=== PATIENT | male | born 1950 | race Caucasian/White ===

== ENCOUNTER → 2018-05-11 09:08 | Outpatient (CLI) | payer MEDICARE, OTHER, SELFPAY | PROVIDERS: PCP Internal Medicine Adolescent Medicine; Visit Provider Internal Medicine Adolescent Medicine | DX: G47.33 Obstructive sleep apnea (adult) (pediatric) (principal); R06.83 Snoring; I10 Essential (primary) hypertension | CPT/HCPCS: G0399 ==

== ENCOUNTER → 2018-10-06 15:27 | Outpatient (CLI) | payer MEDICARE, OTHER, SELFPAY ==
--- NOTE | 2018-10-06 16:03 | XR_ITS ---
XR chest 2V HISTORY: ITS.REASON: BRONCHOPNEUMONIA ORDERING PHYSICIAN: Luisa Sandoval PATIENT AGE: 68 years COMPARISON: 01/14/2017. FINDINGS: Normal heart size. Chronic changes are present in both lower lobes with fibrotic changes. There is a pacemaker wire present along the presternal region within the soft tissues. No lobar consolidation or collapse. No acute bony anomalies. IMPRESSION: 1. No change with no acute findings. 2. Bilateral lower lobe fibrotic change. 3. External defibrillator device present
[2018-10-06 16:07] LABS: Basophils % 0.3 % (0.1-2.0); Eosinophils # 0.2 K/mm3 (0.0-0.4); Eosinophils % 2.6 % (0.1-12.0); Hematocrit 47.7 % (42.0-52.0); Hemoglobin 14.8 g/dL (14.1-18.0); Lymphocytes # 0.9 K/mm3 (0.7-4.5); Lymphocytes % 10.7 % (10-50); Mean Corpuscular HGB Conc 31.1 g/dL (31.8-35.4); Mean Corpuscular Hemoglobin 29.6 pg (27.0-31.2); Mean Corpuscular Volume 95.2 fl (80-94); Mean Platelet Volume 7.7 fl (7.4-10.4); Monocytes # 0.4 K/mm3 (0.1-1.0); Monocytes % 4.9 % (1.7-9.3); Neutrophils # 6.7 K/mm3 (1.8-7.8); Neutrophils % 81.5 % (37.0-80.0); Platelet Count 171 K/mm3 (142-424); Red Blood Count 5.02 M/mm3 (4.60-6.20); Red Cell Distribution Width 14.2 % (11.5-17.5); White Blood Count 8.2 K/mm3 (4.8-10.8)
[2018-10-06 17:05] LABS: Alanine Aminotransferase 42 U/L (12-78); Albumin Level 3.8 gm/dL (3.4-5.0); Albumin/Globulin Ratio 1.2 (1.1-1.8); Alkaline Phosphatase 80 U/L (46-116); Anion Gap 12.7 mEq/L (5-15); Aspartate Amino Transferase 14 U/L (15-37); Bilirubin,Total 0.4 mg/dL (0.2-1.0); Blood Urea Nitrogen 16 mg/dL (7-18); Calcium 8.4 mg/dL (8.5-10.1); Carbon Dioxide 30 mmol/L (21.0-32.0); Chloride 103 mmol/L (98-107); Creatinine,Serum 1.31 mg/dL (0.70-1.30); Estimated Glomerular Filt Rate 55 ml/min (>60); GFR (African American) 66 ML/MIN (>60); Globulin 3.1 gm/dl (1.3-3.2); Glucose 102 mg/dL (74-106); Potassium 3.7 mmoL/L (3.5-5.1); Prostate Specific Ag Screen 0.4 ng/mL (0.0-4.0); Sodium 142 mmol/L (136-145); Total Protein,Serum 6.9 gm/dL (6.4-8.2)
== END ==
PROVIDERS: Visit Provider Nurse Practitioner Family
DX: J18.0 Bronchopneumonia, unspecified organism (principal); Z12.5 Encounter for screening for malignant neoplasm of prostate
CPT/HCPCS: 36415; 71046; 80053; 85025; 87040; G0103

== ENCOUNTER → 2023-05-30 06:34 | Outpatient (CLI) | payer MEDICARE, SELFPAY ==
--- NOTE | 2023-05-30 06:41 | CT_ITS ---
FINAL REPORT CLINICAL HISTORY: MEMORY IMPAIRMENT, FORGETFULLNESS COMPARISON: None FINDINGS: Axial images of the head were obtained without contrast. Coronal and sagittal reformatted images were also obtained. This study was performed with techniques to keep radiation doses as low as reasonably achievable (ALARA). Individualized dose reduction techniques using automated exposure control or adjustment of mA and/or kV according to the patient's size were employed. There is generalized age appropriate atrophy. There is no evidence of intracranial hemorrhage or mass. The ventricular size is within normal limits. There is no evidence of shift of the midline structures. No skull abnormality is seen on the bone window images. Mucosal thickening is noted in multiple paranasal sinuses. IMPRESSION: No acute intracranial abnormality. Reviewed, Interpreted and Dictated by Tomasz Andrea III, MD Transcribed by Halley Sosa Authenticated and [facility]
== END ==
LOC: RAD 06:36
PROVIDERS: PCP Nurse Practitioner Family; Visit Provider Nurse Practitioner Family
DX: R41.3 Other amnesia (principal)
CPT/HCPCS: 70450

== ENCOUNTER 2025-02-26 13:52 | Outpatient (CLI) | payer MEDICARE, SELFPAY ==
--- NOTE | 2025-02-26 13:57 | CT_ITS ---
FINAL REPORT TECHNIQUE: Axial images of the lumbar spine was performed with and without contrast. Sagittal and coronal reformatted images were obtained and reviewed. This study was performed with techniques to keep radiation doses as low as reasonably achievable, (ALARA). Individualized dose reduction techniques using automated exposure control or adjustment of mA and/or kV according to the patient's size were employed. CLINICAL HISTORY: RADICULOPATHY LUMBAR REGION FINDINGS: No acute lumbar fracture is identified. The vertebral body heights are well-preserved. There is a very minimal retrolisthesis of L2 on 3, likely degenerative. Mild levoscoliosis is identified. There are groundglass and airspace opacities in the right lower lobe which are incompletely imaged, pneumonia is not excluded. Otherwise, no acute paraspinal abnormality is identified. L1-2: An annular disc bulge is present with degenerative endplate changes and facet osteoarthropathy. Mild central stenosis and mild bilateral neuroforaminal narrowing. L2-3: An annular disc bulge is present with degenerative endplate changes and facet osteoarthropathy. Moderate central stenosis. Moderate right and severe left neuroforaminal narrowing. L3-4: An annular disc bulge is identified with mild central stenosis and mild to moderate bilateral neuroforaminal narrowing. L4-5: An annular disc bulge is identified with moderate right neuroforaminal narrowing. L5-S1: An annular disc bulge is identified. There is no canal stenosis or neuroforaminal narrowing. IMPRESSION: Multilevel degenerative disc disease, most pronounced at L2-3. Possible pneumonia. Correlate with clinical symptoms. Reviewed, Interpreted and Dictated by Rosa Isela Smith MD Transcribed by Ellen Carrizales Authenticated and [facility]
[2025-02-26 14:21] LABS: Blood Urea Nitrogen 17 mg/dl (9-20); Estimated Glomerular Filt Rate 59 ml/min (>60); GFR (African American) 72 ML/MIN (>60)
[2025-02-26] MEDS: SODIUM CHLORIDE 0.9% 10ML SYR (RAD ONLY) 10 ML IV (15:16)
[2025-02-26] MEDS: IOPAMIDOL-370 (76%);100ML BOTTLE 100 ML IV (15:17)
== END 2025-02-26 23:59 | disposition home or self-care (01) ==
LOC: RAD 13:53
PROVIDERS: PCP Nurse Practitioner Family; Visit Provider Nurse Practitioner Family
DX: M54.16 Radiculopathy, lumbar region (principal)
CPT/HCPCS: 36415; 72133; 82565; 84520; Q9967

== ENCOUNTER 2025-04-09 10:00 | Outpatient (RCR) | payer MEDICARE, SELFPAY | END 2025-04-16 07:26 | disposition home or self-care (01) | LOC: PT.CARL 10:00 | PROVIDERS: PCP Nurse Practitioner Family; Visit Provider Anesthesiology Pain Medicine | DX: M54.16 Radiculopathy, lumbar region (principal) | CPT/HCPCS: 97110; 97140; 97163 ==

== ENCOUNTER 2025-05-06 14:25 | Outpatient (CLI) | payer MEDICARE, SELFPAY ==
--- OUTSIDE RECORDS SUMMARY | 2025-04-03 15:00 | XMS_ITS | Encounter Summary ---
Author Organization Healthcare Address [address] [place] [address] Care Team Providers Care Lining Caser Name Role Phone Cody Sandovaly Ayla DUNN Primary Care Provider [phone] Reason for Referral * Consultation (Routine) - Authorized Specialty Diagnoses / Procedures Referred By Contac t Referred To Contact Diagnoses Coronary artery disease involving tribal coronary artery of tribal heart without angina pectoris Uday Daniel MD [address] [place] [id number] Phone: tel: fax: Referral ID Status Reason Start Date Expiration Date V isits Requested Visits Authorized [id number] Authorized 04/03/2025 10/03/2026 1 1 Encounter Details Date Type Department Care Team (Late st Contact Info) Description 04/03/2025 3:00 PM EDT Office Visit [facility] [place] [address] [facility] [address] [facility], [address] [place] [address] Anton Varma MD [address] [place] [address] Chronic systolic heart failure (CMS/HCC) (Primary Dx); Paroxysmal atrial fibrillation (CMS/HCC); Coronary artery disease involving tribal coronary artery of tribal heart without angina pectoris; Orthostatic hypotension Social History Tobacco Use Types Packs/Day Years Used Date Smoking Tobacco: Former Smokeless Tobacco: Never Tobacco Cessation:Counseling Given: Not Answered Alcohol Use Standard Drinks/Week Comments Yes 0 (1 standard drink = 0.6 oz pur e alcohol) occ. PHQ-2 Answer Date Recorded Patient Health Questionnaire-2 Score 3 04/03/2025 PHQ-9 Answer Date Recorded Patient Health Questionnaire-9 Score 10 04/03/2025 PHQ-2A Answer Date Recorded Patient Health Questionnaire-2 Score 0 09/21/2023 Sex and Gender Information Value Date Recorded Sex Assigned at Not on file Legal Sex Male 6:15 PM EDT Gender Identity Not on file Sexual Orientation Not on file documented as of this encounter Last Filed Vital Signs Vital Sign Reading Time Taken Comments Blood Pressure 119/65 04/03/2025 2:55 PM EDT Pulse 59 04/03/2025 2:55 PM EDT Temperature - - Respiratory Rate - - Oxygen Saturation 94% 04/03/2025 2:55 PM EDT Inhaled Oxygen Concentration - - Weight 110 kg (243 lb 6.2 oz) 04/03/2025 2:55 PM EDT Height 167.6 cm (5' 6 ) 04/03/2025 2:55 PM EDT Body Mass Index 39.28 04/03/2025 2:55 PM EDT documented in this encounter Functional Status * Over the past 2 weeks, how often have you been bothered by any of the following problems? Question Answer Date of Assessment Author Little interest or pleasure in doing things More than half the days 04/03/2025 3:00 PM Nicolle Gardner Feeling down, depressed, or hopeless Several days 04/03/2025 3:00 PM EDT Lexy Cristina Patient Health Questionnaire-2 Score 3 04/03/2025 3:00 PM NISSAT Nicolle Cristina * Question Answer Date of Assessment Author Trouble falling or staying asleep, or sleeping too much More than half the days 04/03/2025 3:00 PM Nicolle Gardner Feeling tired or having little energy More than half the days 04/03/2025 3:00 PM Nicolle Gardner Poor appetite or overeating Not at all 04/03/2025 3:00 PM Nicolle Gardner Feeling bad about yourself - or that you are a failure or have let yourself or your family down Not at all 04/03/2025 3:00 PM Nicolle Gardner Trouble concentrating on things, such as reading the newspaper or watching television Nearly every day 04/03/2025 3:00 PM Nicolle Gardner Moving or speaking so slowly that other people could have noticed? Or the opposite - being so fidgety or restless that you have been moving around a lot more than usual. Not at all 04/03/2025 3:00 PM Nicolle Gardner Thoughts that you would be better off or hurting yourself in some way Not at all 04/03/2025 3:00 PM Nicolle Gardner Patient Health Questionnaire-9 Score 10 04/03/2025 3:00 PM Nicolle Gardner * If you checked off any problems on this questionnaire so far, Question Answer Date of Assessment Author How difficult have these problems made it for you to do your work, take care of things at home, or get along with other people? Somewhat difficult 04/03/2025 3:00 PM Nicolle Gardner * How difficult have these problems made it for you to do your work, take care of things at home, or get along with other people? Answer Date of Assessment Author Somewhat difficult 04/03/2025 3:00 PM Nicolle Gardner documented as of this encounter Miscellaneous Notes * Progress Notes - Anton Varma MD - 04/03/2025 3:00 PM EDT Images from the original note were not included. Cardiology Clinic Return Visit History of present illness: Brown Yañez is a 74 y.o. male that presented for follow up. Pertinent history CAD s/p PCI (prox. LAD 2003) Ischemic CM with HFrEF (EF 35-40%, February 2021, s/p [employer] Subcutaneous ICD for primary prevention) pAF (Xarelto) VASHTI (CPAP) Pertinent medications Furosemide 20 daily Losartan 50 Metop succinate 200 Nitroglycerin sublingual PRN (last was months ago, 1-2 in past year) Rosuvastatin 40 Xarelto 20 PPI At last cardiology clinic visit: April 2024 seen by myself. At that visit we had stopped coleman, and he had improvement in orthostasis. He had dyspnea while walking up inclines, no chest pains or orthopnea. Interval history Heart seems well Gets lightheaded fairly easy Worse when standing up from low postion Does not occur with exertion or at rest, mainly positional Chest pressure occurs randomly Every few days Worse with exertion Improves in about 5 minutes Not very stable on his feet. Hurts in back and hip. He wants to ensure that steroid injections and that GLP1RA are ok for his heart. Objective Physical exam Blood pressure 119/65, pulse 59, height 1.676 m (5' 6 ), weight 110 kg (243 lb 6.2 oz), SpO2 94%. General: Awake, alert, NAD. Neck: No appreciable JVD. Cardiac: Regular rate, regular rhythm, no appreciable murmur. Pulmonary: No increased work of breathing. Extremity: Warm, no significant LE edema. Lab Results Component Value Date LDLCALC 58 03/07/2024 TRIG 200 (H) 03/07/2024 HDL 48 03/07/2024 Lab Results Component Value Date BNP 67 08/31/2021 Lab Results Component Value Date CREATININE 1.19 03/07/2024 K 4.2 03/07/2024 MG 2.3 10/10/2018 Assessment Coronary artery disease (PCI prox LAD) Hyperlipidemia Stable Antiplatelet: no need given anticoagulation as below Lipids: Crestor 40, request lipid panel from his PCP Antianginal: PRN sublingual nitroglycerin HFrEF (31% ICM via TTE 11/2022) Primary prevention [employer] Subcutaneous ICD) Orthostatic hypotension Stable and compensated Orthostic symptoms remain improved after discontinuing spironolactone I want to trial a reduction in metop succinate and reduction in daily diuretic in attempt to targethis orthostasis. GDMT BB: Metop succinate reduce from 200 to 150 RAAS: Losartan 50 MRA: Discontinued spironolactone (orthostasis) SGLT2i: consider in future Diuretic: Lasix 20 reduce from daily to PRN Paroxysmal afib Stable AC: Xarelto Rate: Beta cameron as above Hypertension Appears controlled Regimen as above Recommendations Request lipids from PCP Reduce metoprolol succinate to 150 mg daily Change daily lasix to PRN for weight gain 3-5 pounds, dyspnea, leg swelling Refill xarelto. Xarelto is ok to be held for a few days, if needed, for procedure. I can give specific instructions, if requested by a proceduralist. Return to Clinic: 3 months I spent 38 minutes performing the following components of the encounter (on the day of the encounter): reviewing History, examining the patient, reviewing imaging and/or labs, Independently interpreting echocardiogram, ECG and/or other imaging results, ordering tests or procedures, ordering medications, counseling the patient and family/caregiver, communicating with other health post anesthesia care unit nurse, and entering clinical information in the EHR. Anton Varma MD PGY-5 Fellow, Cardiovascular Diseases Cosigned by Uday Daniel MD at 04/08/2025 7:53 AM EDT Associated attestation - Uday Daniel MD - 04/08/2025 7:53 AM EDT I evaluated the patient with the resident/fellow. I discussed the case with the resident/fellow andagree with the findings and plan as documented. documented in this encounter Plan of Treatment Upcoming Encounters Date Type Department Care Team (Late st Contact Info) Description 08/21/2025 10:00 AM EDT Office Visit [facility] [place] [address] [facility] [facility], [address] [place] [address] Anton Varma MD [address] [place] [id number] Scheduled Referrals Name Type Priority Associated Diagnoses Order Schedule Follow Up Cardiology Outpatient Referral Routine Coronary artery disease involving tribal coronary artery of tribal heart without angina pectoris Expected: 07/04/2025, Expires: 10/03/2026 documented as of this encounter Visit Diagnoses Diagnosis Chronic systolic heart failure (CMS/HCC)- Primary Chronic systolic heart failure Paroxysmal atrial fibrillation (CMS/HCC) Atrial fibrillation Coronary artery disease involving tribal coronary artery of tribal heart without angina pectoris Orthostatic hypotension documented in this encounter Additional Health Concerns Assessment Noted Time PHQ-9 Depression Total Score: 025 3:00 PM EDT A fall risk assessment has been complete d for the patient 04/03/2025 3:00 PM EDT A Body Mass Index follow-up plan has been documented for the patient 04/03/2025 4:23 PM EDT documented as of this encounter Care Teams Lining Caser Relationship Specialty Start Date End Date Luisa Sandoval APRN [address] [place] [address] PCP - General 03/06/21 documented as of this encounter
--- OUTSIDE RECORDS SUMMARY | 2025-04-19 09:10 | XMS_ITS | Encounter Summary ---
Author Organization Healthcare Address [address] [place] [address] Care Team Providers Care Tipple Repairer Name Role Phone Lori Luisa Ayla DUNN Primary Care Provider [phone] Encounter Details Date Type Department Care Team (Latest Contact Info) Description 04/19/2025 9:10 AM EDT - 04/19/2025 11:59 PM EDT Hospital Encounter Cardiac Imaging [address] [place] [address] ICD (implantable cardioverter-defibr illator) in place Discharge Disposition: Home or Self Care Social History Tobacco Use Types Packs/Day Years Used Date Smoking Tobacco: Former Smokeless Tobacco: Never Alcohol Use Standard Drinks/Week Comments Yes 0 [...] on file documented as of this encounter Medications at Time of Discharge BUDESONIDE-FORMOT ROSSY FUMARATE IN Inhale 1 puff 2 (two) times a day. PRN 12/11/2019 buPROPion XL (Wellbutrin XL) 150 MG 24 hr tablet Take 1 tablet (150 mg) by mouth 1 (one) time each day in the morning. 03/30/2024 citalopram (CeleXA) 40 MG tablet Take 1 tablet (40 mg) by mouth every night. 04/12/2016 furosemide (Lasix) 20 MG tablet Take 1 tablet (20 mg) by mouth 1 (one) time each day. 04/20/2021 metoprolol succinate XL (Toprol XL) 100 MG 24 hr tabletIndications :Coronary artery disease involving viejas coronary artery of viejas heart without angina pectoris Take 1.5 tablets by mouth daily. Do not crush or chew. 135 tablet 3 04/03/2025 montelukast (Singulair) 10 MG tablet Take 1 tablet (10 mg) by mouth every night. nitroglycerin (Nitrostat) 0.[address] 1 tablet (0.4 mg) under the tongue every 5 (five) minutes if needed for chest pain. 02/28/2019 omeprazole (PriLOSEC) [address] capsule Take 1 capsule (20 mg) by mouth 1 (one) time each day. Do not crush or chew. rivaroxaban (Xarelto) 20 MG tabletIndications :Coronary artery disease involving viejas coronary artery of viejas heart without angina pectoris Take 1 tablet by mouth 1 time each day with dinner. Take with food. 30 tablet 2 04/03/2025 rosuvastatin (Crestor) 40 MG tablet Take 1 tablet (40 mg) by mouth every night. 08/31/2021 documented as of this encounter Plan of Treatment Upcoming Encounters Date Type Department Care Team (Late st Contact Info) Description 08/21/2025 10:00 AM EDT Office Visit [facility] [place] [address] [facility] [place] [address] Anton Varma MD [address] [place] [address] documented as of this encounter Procedures Procedure Name Priority Date/Time Associated Diagnosis Comments CARDIAC DEVICE CHECK - REMOTE - ICD Routine 04/19/2025 9:37 AM EDT ICD (implantable cardioverter-defibr illator) in place documented in this encounter Results * CARDIAC DEVICE CHECK - REMOTE - ICD (04/19/2025 9:37 AM EDT) Anatomical Region Laterality Modality Other Narrative 04/19/2025 10:37 AM EDT Remaining device battery appropriate for time in service. Electrode impedance ok per report. Presenting EGM records cardiac cycle events appropriately. No new events. No change in smart charge time. Sensing configuration on this report is primary with 1x gain. Presenting: regular ventricular rhythm Kristin Pena Elan DUNN CV IMPLANTABLE CARDIAC DEV ICE PROCEDURES Final Result documented in this encounter Visit Diagnoses Diagnosis ICD (implantable cardioverter-defibrillator) in place documented in this encounter Additional Health Concerns Assessment Noted Time PHQ-9 Depression Total Score: 10 025 3:00 PM EDT A fall risk assessment has been complete d for the patient 04/03/2025 3:00 PM EDT A Body Mass Index follow-up plan has been documented for the patient 04/03/2025 4:23 PM EDT documented as of this encounter Care Teams Tipple Repairer Relationship Specialty Start Date End Date Luisa Sandoval APRN [address] [place] [address] PCP - General 03/06/21 documented as of this encounter
--- NOTE | 2025-05-06 14:28 | CT_ITS ---
FINAL REPORT TECHNIQUE: Axial images were performed through the brain.This study was performed with techniques to keep radiation doses as low as reasonably achievable, (ALARA). Individualized dose reduction techniques using automated exposure control or adjustment of mA and/or kV according to the patient''s size were employed. CLINICAL HISTORY: DIZZINESS/GIDDINESS COMPARISON: 05/30/2023 FINDINGS: There is mild atrophy. The ventricles are normal in size for the degree of atrophy. There is no extra-axial fluid or midline shift. There is no evidence of acute hemorrhage or mass. IMPRESSION: Atrophy. No acute intracranial process. Reviewed, Interpreted and Dictated by Telly Aguilar MD Transcribed by Karissa Connelly Authenticated and [facility]
--- OUTSIDE RECORDS SUMMARY | 2025-05-06 14:28 | XMS_ITS | Continuity of Care Document ---
Author Organization [place] - [email or web address] [facility] Address [address] [place] [address] Assessment No assessment recorded. Plan of Treatment Reminders Order Date Submit Date Provider Last Modified By Organization Details Last Modified Time Details Appointments None recorded. Lab None recorded. Referral neurologist referral - he is already established [address] [place] [address] Neurology, [address] [place] [address], [phone], 09:42:00 Procedures None recorded. Surgeries None recorded. Imaging US, duplex, carotid artery - same day as head CT please [address] [place] [address] (Scheduling), [address], [place], [address], 5 09:20:06 CT, head, w/o contrast - same day as US please [address] [place] [address] (Scheduling), [address], [place], [address], 5 09:20:31 Medication Orders None recorded. Patient TargetsNo targets recorded. Patient InstructionsNo instructions recorded. Reason for Referral Neurologist Referral for Gutierrez jacobo he is already established Referring Physician: Luisa Sandoval, Family Medicine, Encounter Date: 04/24/2025 Problems Name Problem SNOMED Code Status Onset Date Resolution Date Notes Provider Name and Address Organization Details Recorded Time Spinal stenosis of lumbosac ral region 608238603 Active 2024 Luisa Sandoval APRN [address] [place] [address], [address] , [employer] 11:30:52 Allergy to contrast media 652287943 Active 2024 Luisa Sandoval APRN [address] [place] [address], [address] , [employer] 10:05:37 Fatigue 67864774 Active 2024 Luisa Sandoval APRN [address] [place] [address], [address] , [employer] 08:35:22 Obstruct lavern sleep apnea syndrome 69696441 Active 2024 Luisa Sandoval APRN [address] [place] [address], [address] [place] [address] , [employer] 08:41:53 Intermit tent vertigo 200029246 Active 2024 Luisa Sandoval APRN [address] [place] [address], [address] , [employer] 14:59:30 Impacted cerumen of bilatera l ears 76233338454 53247 Active 2024 Luisa Sandoval APRN [address] [place] [address], [address] [place] [address] , [employer] 5 15:00:34 Candidal intertri go 036568849 Active 2024 Luisa Sandoval APRN [address] [place] [address], [address] , [employer] 5 15:02:32 Dizzines s 558555243 Active 2024 Luisa Sandoval APRN [address] [place] [address], [address] , [employer] 5 11:39:56 Blurring of visual image 160095783 Active 2024 Luisa Sandoval, BIOLOGICAL SCIENTIST [address] [facility], [place], [address] , [employer] 5 11:59:00 Pertussi s 60833599 Completed 201806/14/2019 Not Available [facility] 2 21:19:56 Mild recurren t major depressi on 90937874 Active 2020 Problem Code: F33.0; Problem Code Type: ICD-10; Not Available [facility] 2 21:19:56 Hyperten sive disorder 38650552 Active 2018 Problem Code: I10; Problem Code Type: ICD-10; Not Available [facility] 2 21:19:56 Atherosc lerosis of coronary artery without angina pectoris 96647733249 4103 Active 2019 Not Available [facility] 2 21:19:56 Chronic systolic heart failure 421265551 Active 2021 Not Available [facility] 2 21:19:56 Acute pansinus itis 6305778 Completed 201807/14/2022 Problem Code: J01.40; Problem Code Type: ICD-10; STEPHAN LEE null, [employer] 2 12:15:57 Acute sinusiti s 71489062 Completed 201907/14/2022 Problem Code: J01.90; Problem Code Type: ICD-10; STEPHAN LEE null, [employer] 2 12:16:18 Acute sinusiti s 23732515 Completed 202003/22/2022 Problem Code: J01.90; Problem Code Type: ICD-10; STEPHAN LEE null, [employer] 2 12:16:18 Bronchop neumonia 272182509 Completed 201712/05/2018 Problem Code: J18.0; Problem Code Type: ICD-10; Not Available [facility] 2 21:19:57 Chronic obstruct lavern pulmonar y disease with acute lower respirat ory infectio n 878085597 Completed 201806/14/2019 Problem Code: J44.0; Problem Code Type: ICD-10; Not Available [facility] 2 21:19:57 Chronic obstruct lavern pulmonar y disease with acute lower respirat ory infectio n 804433906 Completed 201706/14/2019 Problem Code: J44.0; Problem Code Type: ICD-10; Not Available [facility] 21:19:57 Acute bronchit is co-occur rent with bronchie ctasis 062391255 Completed 201907/14/2022 Problem Code: J47.0; Problem Code Type: ICD-10; STEPHAN merida, [employer] 12:15:46 Chronic obstruct lavern pulmonar y disease 66801584 Active 2017 Problem Code: J44.9; Problem Code Type: ICD-10; Not Available [facility] 21:19:57 Pleural effusion 67290740 Completed 201904/03/2020 Not Available [facility] 21:19:57 Gastroes ophageal reflux disease without esophagi tis 257006446 Active 2018 Not Available [facility] 21:19:57 Umbilica l hernia 363885688 Active 2021 Problem Code: K42.9; Problem Code Type: ICD-10; Not Available [facility] 21:19:57 Melena 3271436 Completed 201806/14/2019 Problem Code: K92.1; Problem Code Type: ICD-10; Not Available [facility] 21:19:58 Pain in right hand 21344318791 9109 Completed 201807/14/2022 Problem Code: M79.641; Problem Code Type: ICD-10; STEPHAN merida, [employer] 12:17:04 Pain of left lower leg 06756284539 9101 Completed 202007/14/2022 Problem Code: M79.662; Problem Code Type: ICD-10; STEPHAN LEE null, [employer] 12:16:57 Pain in left foot 19781606349 9107 Completed 202007/14/2022 Problem Code: M79.672; Problem Code Type: ICD-10; STEPHAN LEE null, [employer] 2 12:17:06 Pain in toe 080398251 Completed 202007/14/2022 STEPHAN LEE null, [employer] 12:16:54 Dyspnea 678151430 Completed 201907/14/2022 Problem Code: R06.00; Problem Code Type: ICD-10; STEPHAN SANCHESDS null, [employer] 12:16:26 Nocturia 624761377 Completed 201907/14/2022 Problem Code: R35.1; Problem Code Type: ICD-10; STEPHAN LEE null, [employer] 12:16:39 Finding of general energy 631774246 Completed 201904/03/2020 Problem Code: R53.83; Problem Code Type: ICD-10; Not Available [facility] 21:19:59 Hypergly cemia 81679421 Completed 202003/22/2022 Problem Code: R73.9; Problem Code Type: ICD-10; Not Available [facility] 21:19:59 Abrasion of skin of forearm 696870583 Completed 201807/14/2022 STEPHAN LEE null, [employer] 12:15:40 General examinat ion of patient Completed 201912/23/2020 Not Available [facility] 21:19:59 Acute pansinus itis 1952860 Completed 201707/05/2018 Problem Code: J01.40; Problem Code Type: ICD-10; STEPHAN merida [employer] 2 12:15:57 Influenz a vaccine needed 74252213152 06 Completed 201908/25/2020 Problem Code: Z23; Problem Code Type: ICD-10; Not Available [facility] 2 21:20:00 Screenin g for malignan t neoplasm of prostate Completed 201712/05/2018 Problem Code: Z12.5; Problem Code Type: ICD-10; Not Available [facility] 2 21:20:00 Body mass index 30+ - obesity 388152234 Active 2019 Problem Code: Z68.37; Problem Code Type: ICD-10; Not Available [facility] 2 21:20:01 Body mass index 30+ - obesity 036462204 Completed 201708/25/2020 Problem Code: Z68.35; Problem Code Type: ICD-10; Not Available [facility] 2 21:20:01 Acute sinusiti s 16622989 Completed 201707/05/2018 Problem Code: 461; Problem Code Type: ICD-9; STEPHAN merida, [employer] 2 12:16:18 Screenin g for cancer Completed 201712/05/2018 Not Available [facility] 2 21:20:02 Problem Notes None recorded. Procedures Surgical History Date Name Laterality Status Provider Name and Address Organization Details Recorded Time 5 Cerumen Removal completed Luisa Sandoval APRN [address] [place] [address], [address], [employer] 04/14/2025 19:47:00 placement of stent in coronary artery completed [employer] 07/14/2022 12:18:41 Pacemaker completed [employer] 07/14/2022 12:18:50 Imaging Results None recorded. Procedure Notes None recorded. Medical Equipment None Reported. Allergies Allergen ID Allergen Name Allergen Category Reaction Reaction Severity Criticality Documentation Date Start Date Code Code System Note Provider Name and Address Organization Details Recorded Time 85246 Lipitor medicatio n Not available Not available Not available 06/29/2022 14951 5 RxNorm Not Available [employer] 22:54:53 48415 Iodinated contrast media (substanc e) medicatio n hives Not available Not available 03/04/20252024 41623 2003 SNOMED Luisa Sandoval, SHAUN [address] [place], [address], [facility] [employer] 10:06:44 Medications Name Sig Start Date Stop Date Status Note LastModified by Organization Details LastModified Time losartan 50 mg tablet TAKE 1 TABLET EVERY DAY 2024 active Not Available Not Available Not Avai lable cyclobenzap rine 10 mg tablet Take 1 tablet as needed by oral route at bedtime. 07/16 completed Not Available Not Available Not Available methocarbam ol 500 mg tablet TAKE ONE TABLET BY MOUTH EVERY DAY NEEDED at bedtime for muscle pain 02/12 completed Not Available Not Available Not Available promethazin e-DM 6.25 mg-15 mg/5 mL oral syrup take 5 millilite rs by oral route every 4 hours as needed, not to exceed 30 mL in 24 hours 12/21 completed Not Available Not Available Not Available carvedilol 25 mg tablet Take 1 tablet(s) by mouth bid 10/20 completed Not Available Not Available Not Available Depo-Medrol 40 mg/mL suspension for injection Take 80 mg by injection route. 03/14 completed Not Available Not Available Not Available citalopram 40 mg tablet TAKE 1 TABLET EVERY DAY active Not Available Not Available No t Available azithromyci n 250 mg tablet take 2 tablets (500 mg) by oral route once daily for 1 day then 1 tablet (250 mg) by oral route once daily for 4 days 11/18 completed Not Available Not Available Not Available ofloxacin 0.3 % eye drops INSTILL ONE DROP INTO THE LEFT EYE 4 TIMES DAILY DIRECTED 07/16 completed Not Available Not Available Not Available fluconazole 150 mg tablet TAKE ONE TABLET BY MOUTH every 72 hours NEEDED, FOR RASH 04/24 completed Not Available Not Available Not Available Nystop 100,000 unit/gram topical powder APPLY TO THE AFFECTED AREA(S) BY TOPICAL ROUTE 2 TIMES PER DAY active Not Available Not Available No t Available metoprolol succinate ER 200 mg tablet,exte nded release 24 hr active Not Available Not Available Not Available prednisone 20 mg tablet TAKE TWO TABLETS BY MOUTH EVERY DAY FOR 5 DAYS 02/12 completed Not Available Not Available Not Available metoprolol succinate ER 100 mg tablet,exte nded release 24 hr take 2 tablets (200 mg) by oral route once daily 07/16 completed Not Available Not Available Not Available aspirin 81 mg tablet,nickie yed release Take 1 tablet(s) by mouth daily 03/10 completed Not Available Not Available Not Available spironolact one 25 mg tablet take 1 tablet by mouth once daily 03/14 completed Not Available Not Available Not Available simvastatin 40 mg tablet Take 1 tablet(s) by mouth at bedtime 01/08 completed Not Available Not Available Not Available Depo-Medrol 80 mg/mL suspension for injection Take 1 mL by injection route. 12/21 completed Not Available Not Available Not Available ceftriaxone 1 gram solution for injection Take 1 g by injection route. 03/14 completed Not Available Not Available Not Available citalopram 20 mg tablet TAKE 1 TABLET ONCE DAILY 07/14 completed Not Available Not Available Not Available famotidine 20 mg tablet take 1 tablet (20 mg) by oral route 2 times per day 07/14 completed Not Available Not Available Not Available prednisolon e acetate 1 % eye drops,suspe nsion INSTILL ONE DROP IN THE LEFT EYE FOUR TIMES DAILY FOR 7 DAYS AND THEN ONE DROP 2 TIMES PER DAY FOR 2 WEEKS 07/16 completed Not Available Not Available Not Available meclizine 25 mg tablet TAKE ONE TABLET BY MOUTH THREE TIMES DAILY NEEDED FOR dizziness 04/24 completed Not Available Not Available Not Available benzonatate 100 mg capsule Take 1 capsule 3 times a day by oral route as needed, for cough. 11/18 completed Not Available Not Available Not Available doxycycline monohydrate 100 mg capsule TAKE ONE CAPSULE BY MOUTH TWICE DAILY FOR 10 DAYS 09/14 completed Not Available Not Available Not Available triamcinolo ne acetonide 40 mg/mL suspension for injection Take 1 mL by injection route. 12/21 completed Not Available Not Available Not Available ranitidine 150 mg tablet TAKE 1 TABLET BY MOUTH TWICE A DAY 07/14 completed Not Available Not Available Not Available losartan 25 mg tablet Take 1/2 tablet(s) by mouth daily 07/14 completed Not Available Not Available Not Available nitroglycer in 0.[address] 1 tablet as needed by sublingua l route. active Not Available Not Available No t Available omeprazole 20 mg capsule,del ayed release TAKE 1 CAPSULE TWICE DAILY 2024 active Not Available Not Available Not Avai lable montelukast 10 mg tablet TAKE 1 TABLET EVERY EVENING active Not Available Not Available No t Available hydroxyzine HCl 25 mg tablet TAKE ONE TABLET BY MOUTH THREE TIMES DAILY NEEDED FOR ITCHING active Not Available Not Available No t Available furosemide 20 mg tablet TAKE 1 TABLET EVERY MORNING 04/09 completed Not Available Not Available Not Available levofloxaci n 500 mg tablet TAKE ONE TABLET BY MOUTH EVERY 24 HOURS 02/12 completed Not Available Not Available Not Available methylpredn isolone 4 mg tablets in a dose pack take as directed by MOUTH 03/15 completed Not Available Not Available Not Available colchicine 0.6 mg tablet take 2 tablets (1.2 mg) by oral route initially , then take 1 tab (0.6mg ) in 1 hr 12/21 completed Not Available Not Available Not Available cefdinir 300 mg capsule TAKE ONE CAPSULE BY MOUTH EVERY TWELVE HOURS with meals for 7 days 12/21 completed Not Available Not Available Not Available fluticasone propionate 50 mcg/actuati on nasal spray,suspe nsion inhale 1 spray (50 mcg) in each nostril by intranasa l route 2 times per day 2019 active Not Available Not Available Not Avai lable loratadine 10 mg tablet Take 1 tablet(s) by mouth daily 07/16 completed Not Available Not Available Not Available amoxicillin 500 mg-potassiu m clavulanate 125 mg tablet take 1 tablet by oral route every 12 hours 09/15 completed Not Available Not Available Not Available rosuvastati n 40 mg tablet TAKE 1 TABLET EVERY DAY active Not Available Not Available No t Available ketorolac 0.4 % eye drops INSTILL 1 DROP INTO LEFT EYE 4 TIMES DAILY 07/16 completed Not Available Not Available Not Available bupropion HCl XL 150 mg 24 hr tablet, extended release Take 1 tablet by mouth once daily active Not Available Not Available No t Available Boostrix Tdap 2.5 Lf unit-8 mcg-5 Lf/0.5 mL intramuscul ar suspension Inject 0.5 ml IM once. 02/02 completed Not Available Not Available Not Available chlorhexidi ne gluconate 0.12 % mouthwash RINSE WITH 15ML FOR 30 SECONDS AND SPIT, USE TWICE DAILY AFTER BRUSHING AND FLOSSING 07/20 completed Not Available Not Available Not Available Symbicort 160 mcg-4.5 mcg/actuati on HFA aerosol inhaler INHALE TWO PUFFS BY MOUTH TWICE DAILY morning and evening active Not Available Not Available No t Available GaviLyte-G 236 gram-22.74 gram-6.74 gram-5.86 gram oral solution 04/12 completed Not Available Not Available Not Available Xarelto 20 mg tablet TAKE 1 TABLET DAILY WITH THE EVENING MEAL. active Not Available Not Available No t Available Eliquis 5 mg tablet TAKE 1 TABLET TWICE A DAY 07/16 completed Not Available Not Available Not Available Breo Ellipta 100 mcg-25 mcg/dose powder for inhalation Take 1 inhalatio n(s) by mouth daily 05/29 completed Not Available Not Available Not Available potassium chloride ER 20 mEq tablet,exte nded release take 1 tablet (20 meq) by oral route once daily with food 11/23 completed Not Available Not Available Not Available Vitals Date Recorded Body mass index (BMI) Body weight Body temperature Heart rate Oxygen saturation Oxygen saturation in Arterial blood by Pulse oximetry Systolic And Diastolic Provider Name and Address Organization Details Last Updated DateTime 5 38.9 kg/m2 988012. 04 g 98.1 [degF] 58 /min 91 % 91 % 126/68 mm[Hg] RACHEL SOLORIO [employer] 11:36:58 Date Recorded Body height Provider Name an d Address Organization Details Last Updated DateTime 04/24/2025 167.64 cm Janice [employer] 04/24/2025 11:32:47 Social History Question Answer Notes LastModified by Organizat ion Details LastModified Time Tobacco Smoking Status Former Smoker STEPHAN LEE fuad, [employer] 07/14/2022 12:18:09 Is Your Home Air Conditioned? Yes Information not available 07/16/2022 Are You Blind Or Do You Have Difficulty Seeing? No Information n ot available 07/14/2022 What Is Your Level Of Caffeine Consumption? Heavy [email or web address] Information not available 03/22/2023 Are You A Caregiver? No Information not available 07/16/2022 In The 14 Days Before Symptom Onset, Have You Had Close Contact With A Laboratory-confirm ed COVID-19 While That Case Was Ill? No Information n ot available 07/16/2022 In The 14 Days Before Symptom Onset, Have You Had Close Contact With A Person Who Is Under Investigation For COVID-19 While That Person Was Ill? No Information not available 07/16/2022 Have You Been To An Area Known To Be High Risk For COVID-19? No Information not available 07/16/2022 Are You Deaf Or Do You Have Serious Difficulty Hearing? No Information not available 07/14/2022 What Type Of Diet Are You Following? REGULAR Information n ot available 07/16/2022 Have There Been Any Changes To Your Family Or Social Situation? No Information no t available 07/16/2022 When Did You Quit Smoking? 16+yearssinc elastcigaret te Information not available 07/14/2022 Are There Any Guns Present In Your Home? No Information not available 07/16/2022 What Was The Date Of Your Most Recent Tobacco Screening? 04/24/2025 [email or web address] Information not available 04/24/2025 What Is Your Current Pack Years? 30ormorepack years Information not available 07/14/2022 Do You Have Any Pets? Yes Information not available 07/16/2022 What Is Your Relationship Status? Information not available 07/16/2022 Do You Use Your Seat Belt Or Car Seat Routinely? Yes Information not available 07/16/2022 Do You Have Smoke And Carbon Monoxide Detectors In Your Home? Yes Information not available 07/16/2022 Are You Passively Exposed To Smoke? No Information no t available 07/16/2022 Are There Any Smokers In Your House? No Information not available 07/16/2022 Do You Participate In Social Media? Yes Information not available 07/16/2022 Do You Use Sunscreen Routinely? Yes Information not available 07/16/2022 How Many Years Have You Smoked Tobacco? 35 Information not available 07/14/2022 Have You Recently Traveled Abroad? No Information not available 07/16/2022 Do You Have Difficulty Walking Or Climbing Stairs? No Information not available 07/14/2022 Are You Currently In School? No Information not available 07/14/2022 Do You Have Any Dietary Restrictions? No Information not available 07/16/2022 Sex: Male Functional Status Question Answer Note LastModified by Organizat ion Details LastModified Time Do you use any illicit or recreational drugs? No Information not available 07/14/2022 Do you or have you ever used any other forms of tobacco or nicotine? No Information not available 07/14/2022 What is your level of alcohol consumption? None Information not available 07/14/2022 Are you currently employed? No Information not available 07/14/2022 Do you have transportation difficulties? No Information not available 07/14/2022 Are you able to walk? [employer] Information not available 07/14/2022 Do you have difficulty doing errands alone? No Information not available 07/14/2022 Are you able to care for yourself? Yes Information not available 07/14/2022 Do you have difficulty dressing or bathing? No Information not available 07/14/2022 Mental Status Question Answer Note LastModified by Organization D etails LastModified Time Do you have difficulty concentrating, remembering or making decisions? No Information no t available 07/14/2022 Family History Relationship Description Onset Age of this Age Resolved Age Notes LastModified by Organization Details LastModified Time Unspecified Relation Family history of congestive heart failure [email or web address] Not available 2022 11:58:47 Unspecified Relation Family history of Myocardial infarction [email or web address] Not available 12/15 11:58:49 Unspecified Relation Family history of Respiratory disease [email or web address] Not available 2022 11:58:53 Medical History Condition Response Allergies (Food, seasonal, environmental ) Y Emergency room visit since last appointm ent. N Depression Y COPD Y Lung Disease Y Acid Reflux (GERD) Y High Cholesterol Y Heart Problems Y Hospitalizations N Reflux/GERD Y Immunizations Vaccine Type Date Status Note Provider Nam e and Address Organization Details Recorded Time Influenza, high-dose, quadrivalent, PF 3 completed Luisa Sandoval APRN [address] [place] [address], [address], [employer] 07/20/2023 10:14:19 COVID-19, mRNA, LNP-S, PF, lawson-sucrose, 30 mcg/0.3 mL 3 completed Marissa merida, [employer] 08/08/2023 08:33:31 zoster recombinant 4 completed Martita merida, [employer] 07/05/2024 11:39:28 Influenza, high-dose, trivalent, PF 4 completed Luisa Sandoval APRN [address] [place], [address], [employer] 08/05/2024 21:44:40 zoster recombinant 4 completed Luisa Sandoval APRN [address] [place], [address], [employer] 09/16/2024 20:50:46 COVID-19, mRNA, LNP-S, PF, 30 mcg/0.3 mL dose 1 completed Marissa [place] null, [employer] 10/19/2023 14:26:46 COVID-19, mRNA, LNP-S, PF, 30 mcg/0.3 mL dose 1 completed Marissa [place] null, [employer] 10/19/2023 14:26:46 COVID-19, mRNA, LNP-S, PF, 30 mcg/0.3 mL dose 1 completed Marissa Rogelio null, [employer] 10/19/2023 14:26:46 Tdap 9 completed Not Available [facility] 06/30/2022 00:02:01 COVID-19, mRNA, LNP-S, bivalent, PF, 30 mcg/0.3 mL dose 2 completed Marissa Rogelio null, [employer] 10/19/2023 14:26:46 Influenza, high-dose, quadrivalent, PF 0 completed Marissa [place] null, [employer] 10/19/2023 14:26:46 Influenza, high-dose, quadrivalent, PF 1 completed Marissa Rogelio null, [employer] 10/19/2023 14:26:46 pneumococcal polysaccharide PPV23 4 completed Marissa Rogelio null, [employer] 10/19/2023 14:26:46 pneumococcal polysaccharide PPV23 8 completed Marissa [place] null, [employer] 10/19/2023 14:26:46 Influenza, high-dose, trivalent, PF 8 completed Marissa Rogelio null, [employer] 10/19/2023 14:26:46 Hep B, adult 1 completed Marissa [place] null, [employer] 10/19/2023 14:26:46 Influenza, split virus, quadrivalent, PF 2 completed Luisa Sandoval APRN [address] [place] [address], [address], [facility] 07/16/2022 12:50:46 Past Encounters Encounter ID Performer Location Encounter Start Date Encounter Closed Date Diagnosis/Indication Diagnosis SNOMED-CT Code Diagnosis ICD10 Code Diagnosis Note [id number] Luisa Sandoval APRN [address] [address] 04/09/2025 14:32:12 04/09/2025 15:27:33 Intermittent vertigo 535556025 R42 Likely due to cerumen impaction. Begin meclizine. Inst to proceed to ER should sx progress. Falls safety and slow position changes explained. Impacted c erumen of bilateral ears 8624668811 914066 H61.23 Candidal intertrigo 2661 24920 B37.2 Use of powder explained. Keep skin cool and dry. [id number] Luisa Sandoval APRN [address] [address] 04/24/2025 11:27:00 04/24/2025 12:11:31 Dizziness 346079896 R42 [address] head as his pacemaker is not MRI safe. Obtain carotid duplex as he has hx CAD. Continue meclizine. Refrain from driving. Obtain Neuro consult. He was advised to proceed to ER if his sx progress in any way in the interim. Blurring o f visual image 438002796 H53.8 Eye exam was recommende d. Health Concerns Section Related Observation LastModified by Organization Detai ls LastModified Time None Recorded Concern Status LastModified by Organization Details LastModified Time None Recorded Payers Encounter Date Sequence Insurance Name Policy Number Policy Baugh Covered Member ID Baugh Member ID Guarantor Name 04/24/2025 1 [employer] (MEDICARE REPLACEMENT/A DVANTAGE - PPO) Brown Yañez [id number] Brown Yañez Notes Date Note Type Note Provider Name and Address Organization Details Recorded Time 04/24/2025 text/html DizzinessReporte d bypatient.Quality:spin tavares Severity:some effect on daily activities;avoiding exercise;avoiding driving Duration:lasts <1 minute; acute Onset/Timing:daily, began 3 weeks ago Context:non-smoker;his tory of heart condition;history of high Blood Pressure Alleviating factors:holding still Aggravating factors:moving head; moving eyes Associated Symptoms:no dysphagia; no slurred speech; no foggy vision; no blindness; no spots in field of vision; no eye pain; no hearing loss; no difficulty understanding speech; no ear discharge; no ringing in the ears; no syncope; no loss of consciousness; no headache; no head pressure; no nausea; no vomiting; no weak limbs; no facial numbness; no difficulty with speech; no tingling around the mouth; normal stools; no sensation of heart racing; no history of diabetes; no seizure; no facial weakness; no tingling of fingers; no audible eye movements;double vision;blurred vision;ear feel pressured;popping noise in the ears;anxiety or unsteady feelings;history of hypertension; no tinnitis; no shortness of breath; no palpitations; no deafness; no sweating; no photophobia Prior opinionAMBER Brown presents to follow-up on his complaint of dizziness. He was seen on April 09 for vertigo type symptoms including dizziness with moving head and looking up and down. He was found to have a cerumen impaction. His ears were flushed. He was started on meclizine. He states that his symptoms have not improved with meclizine. He now reports that at times when he looks out into a field he will see 2 cows when he knows there is only truly 1. His symptoms are not positional. He says at times he finds himself walking with a lean to the right. He denies headache, nausea vomiting, chest pain, and palpitations. Recent pacemaker interrogation was normal without event noted. His mother is as she had significant Alzheimer's disease. He has no history of head injury. He recently had NML routine follow up with Cardio at and Pulmonary at [facility]. Luisa Sandoval APRN [address] [place], [address], [facility] [employer] 04/24/2025 12:17:24
--- OUTSIDE RECORDS SUMMARY | 2025-05-06 14:29 | XMS_ITS | Encounter Summary ---
Author Organization Healthcare Address [address] [place] [address] Care Team Providers Care Reporting Manager Name Role Phone SandovalLuisa houser SHAUN Primary Care Provider [phone] Encounter Details Date Type Department Care Team ([facility] st Contact Info) Description 04/19/2025 Telephone [facility] [facility] [address], [address] [place] [address] Anton Varma MD [address] [phone] Social History Tobacco Use Types Packs/Day Years [...] on file documented as of this encounter Miscellaneous Notes * Telephone Encounter - Anton Varma MD - 04/19/2025 3:11 PM EDT Significant event note Request for input on periprocedural anticoagulation plan. Requested by Dr. Park. I have been told this will be a 3-day hold in anticipation of an injection by his pain specialist, Dr. Park. His indication for anticoagulation is atrial fibrillation, so it is reasonable to hold fora few days in anticipation of this procedure. Anticoagulation should be resumed the day following the procedure. If there is an unexpected complication from the procedure, anticoagulation should be restarted at the discretion of the proceduralist. Recommendations I agree that it is ok to hold his anticoagulation 3 days prior to procedure Resume anticogulation the day after the procedure (or longer at proceduralist's discretion if any complication from the procedure) Anton Varma MD PGY-5 Fellow, Cardiovascular Diseases * Telephone Encounter - Susan Rivera - 04/19/2025 2:41 PM EDT Clinical Concern/Question Reason for Call: Per patient's , patient needs a letter or statement to Dr. Park's office, [facility], to go off Xarelto for 3 days Best contact number: [phone] (home) Optimal time of day to reach caller: ANYTIME Additional comments/information from caller: None Note: Please do not reply to this message. Follow-up communication and further actions as a result of this message need to be communicated with the patient directly, if the patient is not active onMyChart. If the patient is active on MyChart, they will receive notification of the communication/outcome via MyChart. documented in this encounter Plan of Treatment Upcoming Encounters Date Type Department Care Team (Late st Contact Info) Description 08/21/2025 10:00 AM EDT Office Visit [facility] [facility] [address], [address] [place] [address] Anton Varma MD [address] [place] [phone] documented as of this encounter Visit Diagnoses Not on filedocumented in this encounter Additional Health Concerns Assessment Noted Time PHQ-9 Depression Total Score: 10 025 3:00 PM EDT A fall risk assessment has been complete d for the patient 04/03/2025 3:00 PM EDT A Body Mass Index follow-up plan has been documented for the patient 04/03/2025 4:23 PM EDT documented as of this encounter Care Teams Reporting Manager Relationship Specialty Start Date End Date Luisa Sandoval APRN [address] [place] [address] PCP - General 03/06/21 documented as of this encounter
--- OUTSIDE RECORDS SUMMARY | 2025-05-06 14:29 | XMS_ITS | Continuity of Care Document ---
Author Organization [place] - [employer] [facility] Address [address] [place] [address] Assessment No assessment recorded. Plan of Treatment Reminders Order Date Submit Date Provider Last Modified By Organization Details Last Modified Time Details Appointments None recorded. Lab TSH, ultra-sens itive, serum 2024 025 [facility] [address] [place], [address], 5 07:07:26 CBC w/ auto diff 2024 025 [facility] [address] [place], [address], 5 07:07:24 CMP, serum or plasma 2024 025 [facility] [address] [place], [address], 5 07:07:25 cobalamin and folate panel, serum 2024 025 [facility] [address] [place], [address], 5 07:07:25 vitamin D, 25-hydroxy , total, serum 2024 025 [facility] [address] [place], [address], 07:07:26 Referral None recorded. Procedures None recorded. Surgeries None recorded. Imaging home sleep study [address], [address], [facility] [address], [place], [address], 5 13:15:07 Medication Orders None recorded. Patient TargetsNo targets recorded. Patient InstructionsNo instructions recorded. Reason for Referral None Reported. Results Created Date Observation Date Name Description Value Unit Range Abnormal Flag Note LastModifiedBy Organization Detail LastModifiedTime 02/27/2002/26/2025 CT, lumba r spine , w/wo contr ast No observ ation record ed. [email or web address] [facility] [address], [place], [address], 02/27/2025 11:30:35 Result Notes None recorded. Problems Name Problem SNOMED Code Status Onset Date Resolution Date Notes Provider Name and Address Organization Details Recorded Time Spinal stenosis of lumbosac ral region 489241322 Active 2024 Luisa Sandoval APRN [address] [place], [address] , [employer] 5 11:30:52 Allergy to contrast media 693952403 Active 2024 Luisa Sandoval APRN [address] [place], [address] , [employer] 5 10:05:37 Fatigue 93346843 Active 2024 Luisa Sandoval APRN [address] [place], [address] , [employer] 5 08:35:22 Obstruct lavern sleep apnea syndrome 52198981 Active 2024 Luisa Sandoval APRN [address] [place], [address] , [employer] 5 08:41:53 Intermit tent vertigo 922311932 Active 2024 Luisa Sandoval APRN [address] [place], [address] , [employer] 5 14:59:30 Impacted cerumen of bilatera l ears 59457607542 64782 Active 2024 Luisa Sandoval, [employer] FILTERER [address] [place], [address] , [employer] [facility] 5 15:00:34 Candidal intertri go 773553016 Active 2024 Luisa Sandoval, [employer] FIL[employer]ER [address] [place], [address] , [employer] [facility] 5 15:02:32 Dizzines s 781266191 Active 2024 Luisa Sandoval, [employer] FIL[employer]ER [address] [place], [address] , [employer] [facility] 5 11:39:56 Blurring of visual image 022874861 Active 2024 Luisa Sandoval, [employer] FIL[employer]ER [address] [place], [address] , [employer] [facility] 5 11:59:00 Pertussi s 33515501 Completed 201806/14/2019 Not Available [facility] 2 21:19:56 Mild recurren t major depressi on 01481271 Active 2020 Problem Code: F33.0; Problem Code Type: ICD-10; Not Available [facility] 2 21:19:56 Hyperten sive disorder 20327971 Active 2018 Problem Code: I10; Problem Code Type: ICD-10; Not Available [facility] 2 21:19:56 Atherosc lerosis of coronary artery without angina pectoris 63425818796 4103 Active 2019 Not Available [facility] 2 21:19:56 Chronic systolic heart failure 016056480 Active 2021 Not Available [facility] 2 21:19:56 Acute pansinus itis 9394420 Completed 201807/14/2022 Problem Code: J01.40; Problem Code Type: ICD-10; STEPHAN JAMESVARGHESE null, [employer] 12:15:57 Acute sinusiti s 02527196 Completed 201907/14/2022 Problem Code: J01.90; Problem Code Type: ICD-10; STEPHAN JAMESVARGHESE null, [employer] 12:16:18 Acute sinusiti s 14091827 Completed 202003/22/2022 Problem Code: J01.90; Problem Code Type: ICD-10; JOSEFALala JAMESVARGHESE null, [employer] 12:16:18 Bronchop neumonia 345652764 Completed 201712/05/2018 Problem Code: J18.0; Problem Code Type: ICD-10; Not Available [facility] 21:19:57 Chronic obstruct lavern pulmonar y disease with acute lower respirat ory infectio n 509955372 Completed 201806/14/2019 Problem Code: J44.0; Problem Code Type: ICD-10; Not Available [facility] 21:19:57 Chronic obstruct lavern pulmonar y disease with acute lower respirat ory infectio n 119785878 Completed 201706/14/2019 Problem Code: J44.0; Problem Code Type: ICD-10; Not Available [facility] 21:19:57 Acute bronchit is co-occur rent with bronchie ctasis 924025768 Completed 201907/14/2022 Problem Code: J47.0; Problem Code Type: ICD-10; STEPHAN LEE null, [employer] 12:15:46 Chronic obstruct lavern pulmonar y disease 72514057 Active 2017 Problem Code: J44.9; Problem Code Type: ICD-10; Not Available [facility] 21:19:57 Pleural effusion 44513015 Completed 201904/03/2020 Not Available [facility] 2 21:19:57 Gastroes ophageal reflux disease without esophagi tis 547707247 Active 2018 Not Available [facility] 21:19:57 Umbilica l hernia 067054496 Active 2021 Problem Code: K42.9; Problem Code Type: ICD-10; Not Available [facility] 2 21:19:57 Melena 8377397 Completed 201806/14/2019 Problem Code: K92.1; Problem Code Type: ICD-10; Not Available [facility] 21:19:58 Pain in right hand 63265486804 9109 Completed 201807/14/2022 Problem Code: M79.641; Problem Code Type: ICD-10; DANNAH ROBIRDS null, [employer] 2 12:17:04 Pain of left lower leg 63332959564 9101 Completed 202007/14/2022 Problem Code: M79.662; Problem Code Type: ICD-10; DANNAH ROBIRDS null, [employer] 2 12:16:57 Pain in left foot 00718402844 9107 Completed 202007/14/2022 Problem Code: M79.672; Problem Code Type: ICD-10; DANNAH ROBIRDS null, [employer] 2 12:17:06 Pain in toe 188448592 Completed 202007/14/2022 DANNAH ROBIRDS null, [employer] 2 12:16:54 Dyspnea 178999270 Completed 201907/14/2022 Problem Code: R06.00; Problem Code Type: ICD-10; DANNAH ROBIRDS null, [employer] 2 12:16:26 Nocturia 688148412 Completed 201907/14/2022 Problem Code: R35.1; Problem Code Type: ICD-10; DANNAH ROBIRDS null, [employer] 12:16:39 Finding of general energy 231168185 Completed 201904/03/2020 Problem Code: R53.83; Problem Code Type: ICD-10; Not Available [facility] 21:19:59 Hypergly cemia 51109939 Completed 202003/22/2022 Problem Code: R73.9; Problem Code Type: ICD-10; Not Available [facility] 21:19:59 Abrasion of skin of forearm 015103848 Completed 201807/14/2022 STEPHAN JAMESVARGHSEE null, [employer]. 12:15:40 General examinat ion of patient Completed 201912/23/2020 Not Available [facility] 21:19:59 Acute pansinus itis 0963831 Completed 201707/05/2018 Problem Code: J01.40; Problem Code Type: ICD-10; STEPHAN JAMESVARGHESE null, [employer]. 12:15:57 Influenz a vaccine needed 77978676701 06 Completed 201908/25/2020 Problem Code: Z23; Problem Code Type: ICD-10; Not Available [facility] 21:20:00 Screenin g for malignan t neoplasm of prostate Completed 201712/05/2018 Problem Code: Z12.5; Problem Code Type: ICD-10; Not Available [facility] 21:20:00 Body mass index 30+ - obesity 833353946 Active 2019 Problem Code: Z68.37; Problem Code Type: ICD-10; Not Available [facility] 21:20:01 Body mass index 30+ - obesity 206380276 Completed 201708/25/2020 Problem Code: Z68.35; Problem Code Type: ICD-10; Not Available [facility] 21:20:01 Acute sinusiti s 82674621 Completed 201707/05/2018 Problem Code: 461; Problem Code Type: ICD-9; STEPHAN LEE [facility], [employer] 12:16:18 Screenin g for cancer Completed 201712/05/2018 Not Available [facility] 21:20:02 Problem Notes None recorded. Procedures Surgical History Date Name Laterality Status Provider Name and Address Organization Details Recorded Time Cerumen Removal completed Luisa Sandoval APRN [address] [place], [address], [employer] [facility] 04/14/2025 19:47:00 placement of stent in coronary artery completed STEPHAN LEE [employer] 07/14/2022 12:18:41 Pacemaker completed [email or web address] 07/14/2022 12:18:50 Imaging Results None recorded. Procedure Notes None recorded. Medical Equipment None Reported. Allergies Allergen ID Allergen Name Allergen Category Reaction Reaction Severity Criticality Documentation Date Start Date Code Code System Note Provider Name and Address Organization Details Recorded Time 96834 Lipitor medicatio n Not available Not available Not available 06/29/2022 81223 5 RxNorm Not Available [facility] 22:54:53 85830 Iodinated contrast media (substanc e) medicatio n hives Not available Not available 03/04/20252024 70463 2004 SNOMED Luisa Sandoval APRN [address] [place], [address], [employer] [facility] 5 10:06:44 Medications Name Sig Start Date Stop [...] Available Not Available Vitals Date Recorded Body height Body mass index (BMI) Body weight Body temperature Heart rate Oxygen saturation Oxygen saturation in Arterial blood by Pulse oximetry Systolic And Diastolic Provider Name and Address Organization Details Last Updated DateTime 5 167.64 cm 39.2 kg/m2 852267. 51 g 97.3 [degF] 61 /min 93 % 93 % 126/49 mm[Hg] RACHEL SOLORIO [employer] [facility] 5 08:32:36 Social History Question Answer Notes LastModified by Organizat ion Details LastModified Time Tobacco Smoking Status Former Smoker STEPHAN SANCHESWAYNE mer[place], [facility] 07/14/2022 12:18:09 Is Your Home Air Conditioned? [...] room visit since last appointm ent. N Lung Disease Y Depression Y COPD Y Acid Reflux (GERD) Y High Cholesterol Y Heart Problems Y Hospitalizations N Reflux/GERD Y Immunizations Vaccine Type Date Status Note Provider Nam e and Address Organization Details Recorded Time Influenza, high-dose, quadrivalent, PF 3 completed Luisa Sandoval APRN [address] [place], [address], [facility] [employer] 07/20/2023 10:14:19 COVID-19, mRNA, LNP-S, PF, lawson-sucrose, 30 mcg/0.3 mL 3 completed Marissa Meade null, [facility] 08/08/2023 08:33:31 zoster recombinant 4 completed Martita Cosme null, [employer] [facility] 07/05/2024 11:39:28 Influenza, high-dose, trivalent, PF 4 completed Luisa Sandoval, [employer] [address] [place] [address], [address], [facility] 08/05/2024 21:44:40 zoster recombinant 4 completed Luisa Sandoval, [employer] FIL[employer]ER [address] [place], [address], [facility] 09/16/2024 20:50:46 COVID-19, mRNA, LNP-S, PF, 30 mcg/0.3 mL dose 1 completed Marissa Meade null, [facility] 10/19/2023 14:26:46 COVID-19, mRNA, LNP-S, PF, 30 mcg/0.3 mL dose 1 completed Marissa Meade null, [facility] 10/19/2023 14:26:46 COVID-19, mRNA, LNP-S, PF, 30 mcg/0.3 mL dose 1 completed Marissa Rogelio null, [employer] 10/19/2023 14:26:46 Tdap 9 completed Not Available [facility] 06/30/2022 00:02:01 COVID-19, mRNA, LNP-S, bivalent, PF, 30 mcg/0.3 mL dose 2 completed Marissa Meade null, [facility] 10/19/2023 14:26:46 Influenza, high-dose, quadrivalent, PF 0 completed Marissa Meade null, [facility] 10/19/2023 14:26:46 Influenza, high-dose, quadrivalent, PF 1 completed Marissa Meade null, [facility] 10/19/2023 14:26:46 pneumococcal polysaccharide PPV23 4 completed Marissa Rogelio null, [facility] 10/19/2023 14:26:46 pneumococcal polysaccharide PPV23 8 completed Marissa Rogelio null, [facility] 10/19/2023 14:26:46 Influenza, high-dose, trivalent, PF 8 completed Marissa Meade null, [employer] [facility] 10/19/2023 14:26:46 Hep B, adult 1 completed Marissa Meade null, [employer] [facility] 10/19/2023 14:26:46 Influenza, split virus, quadrivalent, PF 2 completed Luisa Sandoval APRN [address] [place] [address], [address], [facility] 07/16/2022 12:50:46 Past Encounters Encounter ID Performer Location Encounter Start Date Encounter Closed Date Diagnosis/Indication Diagnosis SNOMED-CT Code Diagnosis ICD10 Code Diagnosis Note [id number] Luisa Sandoval APRN [place] [id number] 03/04/2025 09:49:50 03/04/2025 10:20:25 Acute urticaria 175499935 L50.8 Customary discussion of prescribed medication benefits, side effects, and compliance was done. Patient was instructed on proper skin care. Discussed disease presentati on, treatment options, progressio n, complicati ons, and outcomes with patient during this office visit. Allergy to contrast media 590391040 Z91.943 [id number] Luisa Sandoval APRN [address] [address] 03/15/2025 07:57:37 03/15/2025 08:53:30 Hypertensive disorder 67456289 I10 DASH diet, weight loss, exercise emphasized . Continue current meds. Mild recur rent major depression 74964255 F33.0 Continue celexa and wellbutrin Fatigue 99824921 R53.82 Atheroscle rosis of coronary artery without angina pectoris 9021766800 74776 I25.10 Continue current medication s, dash diet, exercise and weight loss encouraged . Daily AM post void weights and BP checks encouraged . Obstructiv e sleep apnea syndrome 70329687 G47.33 Needs updated sleep study. He is using CPAP but remains very fatigued. Last study was well over 5 years ago. May qualify for Zepbound for VASHTI which would benefit his CVD health also. Body mass index 30+ - obesity 368836390 Z68.39 Health Concerns Section Related Observation LastModified by Organization Detai ls LastModified Time None Recorded Concern Status LastModified by Organization Details LastModified Time None Recorded Payers Encounter Date Sequence Insurance Name Policy Number Policy Baugh Covered Member ID Baugh Member ID Guarantor Name 03/15/2025 1 [employer] (MEDICARE REPLACEMENT/A DVANTAGE - PPO) Brown Yañez [id number] Brown Yañez Notes Date Note Type Note Provider Name and Address Organization Details Recorded Time 5 text/html Anxiety/DepressionReported bypatient.Severity:denies suicidal ideations; able to maintain relationships; symptoms improved;interference with activities of daily living Duration:chronic Onset/Timing:gradual Context:cardiac disease;major life stressors;bereavement Modifying Factors:social support; selective serotonin reuptake inhibitor (SSRI) Associated Symptoms:anxiety;depressio n;anhedonia;excessive worrying;HTNCoronary Artery Disease F/UReported bypatient.Severity:no chest discomfort with daily activities; has not used nitroglycerin; symptoms are unchanged Context:non-smoker;control led hypertension Treatment:adheres to lifestyle changes; adheres to medication therapies Associated Symptoms:no chest pain; no neck pain; no left arm pain; no dyspnea with exertion; no diaphoresis; no nausea; no stress; no back pain; no jaw pain; no dizzinessHypertension F/UReported bypatient.Medications:taki ng medications as directed; no side effects from medication Lifestyle:limits sodium intake;not exercising regularly Associated Symptoms:no dizziness; no lightheadedness; no chest pain; no shortness of breath; no palpitations; no edema; no calf pain with exertion; no headacheObstructive Sleep Apnea F/UReported bypatient.Quality:snoring with apnea Onset/Timing:chronic; initially started 6years ago Duration:long standing; continuous Severity:severe;limits daily activities;difficulty getting going in the morning; severity of snoring bed partner leaves the room occasionally Context:history of heart attack;hypertension; worse with seasonal allergen exposure; witness to sleep spouse; sleep hours per night:7 Alleviating factors:relief with CPAP Aggravating factors:worse with excess fatigue; worse during an upper respiratory infection (a cold); worse when allergies are active Associated Symptoms:no morning headache; no awakening at night short of breath; no sweating heavily at night;excessive sleepiness during the day;excess napping;memory lapses or loss Prior Tests:thyroid panel; home sleep study Prior TreatmentCPAP Prior opinionPCPNotes:He remains very fatigued. He has not had an updated sleep study in 5-7 years. He is compliant with CPAP nightly. He has CAD with ICD and is followed by Cardiology at . Hx Vit D deficiency. Luisa Sandoval APRN [address] [place], [address], [facility] [employer] 03/15/2025 10:06:36
--- OUTSIDE RECORDS SUMMARY | 2025-05-06 14:29 | XMS_ITS | Encounter Summary ---
Author Organization Healthcare Address [address] [place] [address] Care Team Providers Care Flow Floor Attendant Name Role Phone Luisa Sandoval APRN Primary Care Provider [phone] Encounter Details Date Type Department Care Team (Late Contact Info) Description 03/17/2021 Orders Only [facility] [place] [address] [place] [id number] Michael Grijalva MD [address] [place] [address] Social History Tobacco Use Types Packs/Day Years Used Date Smoking Tobacco: Former Alcohol Use Standard Drinks/Week Comments Yes 0 (1 standard drink = 0.6 oz pur e alcohol) Sex and Gender Information Value Date Recorded Sex Assigned at Not on file Legal Sex Male 6:15 PM EDT Gender Identity Not on file Sexual Orientation Not on file documented as of this encounter Plan of Treatment Upcoming Encounters Date Type Department Care Team (Late st Contact Info) Description 08/21/2025 10:00 AM EDT Office Visit [facility] [place] [address] [facility], [address] [place] [address] Anton Varma MD [address] [place] [address] documented as of this encounter Visit Diagnoses Not on filedocumented in this encounter Care Teams Flow Floor Attendant Relationship Specialty Start Date End Date Luisa Sandoval, SHAUN [address] [place], [place] [id number] PCP - General 03/06/21 documented as of this encounter
--- OUTSIDE RECORDS SUMMARY | 2025-05-06 14:29 | XMS_ITS | Clinical Summary ---
Author Organization Healthcare Address [address] [place] [address] Care Team Providers Care Outdoor Fitness Trainer Name Role Phone Lori Luisa Ayla DUNN Primary Care Provider [phone] Allergies Active Allergy Reactions Criticality Noted Date Comments Atorvastatin Rash Low 08/07/2010 Lisinopril Cough,Unknown - Pooja ent states they do not know rxn details Low 02/20/2014 Medications citalopram (CeleXA) 40 MG tablet Take 1 tablet (40 mg) by mouth every night. 04/12/2016 Active furosemide (Lasix) 20 MG tablet Take 1 tablet (20 mg) by mouth 1 (one) time each day. 04/20/2021 Active BUDESONIDE-FORM OTEROL FUMARATE IN Inhale 1 puff 2 (two) times a day. PRN 12/11/2019 Active nitroglycerin (Nitrostat) 0.[address] 1 tablet (0.4 mg) under the tongue every 5 (five) minutes if needed for chest pain. 02/28/2019 Active losartan (Cozaar) 50 MG tabletIndicatio ns:Chronic combined systolic and diastolic heart failure (CMS/HCC) Take 1 tablet (50 mg total) by mouth 1 (one) time each day. 90 tablet 3 07/28/2021 Active rosuvastatin (Crestor) 40 MG tablet Take 1 tablet (40 mg) by mouth every night. 08/31/2021 Active omeprazole (PriLOSEC) [address] capsule Take 1 capsule (20 mg) by mouth 1 (one) time each day. Do not crush or chew. Active montelukast (Singulair) 10 MG tablet Take 1 tablet (10 mg) by mouth every night. Active buPROPion XL (Wellbutrin XL) 150 MG 24 hr tablet Take 1 tablet (150 mg) by mouth 1 (one) time each day in the morning. 03/30/2024 Active rivaroxaban (Xarelto) 20 MG tabletIndicatio ns:Coronary artery disease involving chitina coronary artery of chitina heart without angina pectoris Take 1 tablet by mouth 1 time each day with dinner. Take with food. 30 tablet 2 04/03/2025 Active metoprolol succinate XL (Toprol XL) 100 MG 24 hr tabletIndicatio ns:Coronary artery disease involving chitina coronary artery of chitina heart without angina pectoris Take 1.5 tablets by mouth daily. Do not crush or chew. 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, Class III, BMI 40-49.9 (morbid obesity) 01/19/2021 Chronic diastolic CHF (congestive heart failure) 12/18/2019 Idiopathic bronchiectasis 12/18/2019 Lung nodule 12/18/2019 Nocturnal hypoxemia 12/18/2019 A-fib 12/07/2018 Frequent episodes of bronchitis 12/07/2018 Overview (06/17/2021): Annual - Fall/Winter GERD (gastroesophageal reflux disease) 9 VASHTI on CPAP 12/07/2018 Seasonal allergies 12/07/2018 Chronic stable angina 06/15/2017 History of decreased renal function 06/15/2017 Acute kidney injury 08/05/2014 Claudication 07/29/2014 Presence of cardiac defibrillator 03/27/2014 CAD (coronary artery disease) 12/14/2013 Depression 12/14/2013 Essential hypertension 12/14/2013 Hyperlipidemia 12/14/2013 Ischemic cardiomyopathy 12/14/2013 Old myocardial infarction 12/14/2013 Encounters Date Type Department Care Team Description 04/19/2025 9:10 AM EDT - 04/19/2025 11:59 PM EDT Hospital Encounter Cardiac Imaging [address] [place] [address] ICD (implantable cardioverter-defibri llator) in place Discharge Disposition: Home or Self Care 04/19/2025 Telephone [facility] [address], [address] [place] [address] Anton Varma MD 04/19/2025 Travel 04/09/2025 Telephone [facility] [address], [address] [place] [address] Mohini Saeed RN 04/03/2025 3:00 PM EDT Office Visit [facility] [address], [address] [place] [address] Anton Varma MD Chronic systolic heart failure (CMS/HCC) (Primary Dx); Paroxysmal atrial fibrillation (CMS/HCC); Coronary artery disease involving chitina coronary artery of chitina heart without angina pectoris; Orthostatic hypotension 04/03/2025 Travel 04/01/2025 Refill [facility] [address], [address] [place] [address] Anton Varma MD 03/27/2025 Travel 03/11/2025 Telephone [facility] [address], [address] [place] [address] None, None [facility] Clinical Concern/Question from Last 3 Months Immunizations Immunization Administration Dates Next Due Hep A, Adult 02/26/2019 Hep B, adult 11/08/2000 Influenza, Split (incl. louise fied surface antigen) 07/28/2020 Influenza, high-dose, quadrivalent 07/20,07/27/2021,07/21/2020,07/20,07/07/2018 Influenza, injectable, quadr ivalent, preservative free 07/16/2022 Pfizer Covid-19 Vaccine 12y+ , Ok Protein, PF, Marcos-Sucrose 08/08/2023 Pneumococcal Polysaccharide PPV23 10/11/2018, Tdap 01/08/2019 Family History Medical History Relation Name Comments Coronary artery disease Other 1 Hypertension Other 2 Relation Name Status Comments Other 1 Other 2 Social History Tobacco Use Types Packs/Day Years [...] on file Sexual Orientation Not on file Last Filed Vital Signs Vital Sign Reading Time Taken Comments Blood Pressure 119/65 04/03/2025 2:55 PM EDT Pulse 59 04/03/2025 2:55 PM EDT Temperature 36.3 C (97.3 F) 09/21/2023 2:23 PM EST Respiratory Rate 21 09/21/2023 2:23 PM EST Oxygen Saturation 94% 04/03/2025 2:55 PM EDT Inhaled Oxygen Concentration - - Weight 110 kg (243 lb 6.2 oz) 04/03/2025 2:55 PM EDT Height 167.6 cm (5' 6 ) 04/03/2025 2:55 PM EDT Body Mass Index 39.28 04/03/2025 2:55 PM EDT Plan of Treatment Upcoming Encounters Date Type Department Care Team (Late st Contact Info) Description 08/21/2025 10:00 AM EDT Office Visit [facility] [place] [address] [facility] [address], [address] [place] [address] Anton Varma MD [address] [place] [address] Health Maintenance Due Date Last Done Comments [facility] Annual Wellness (AWV) 1950 [facility]-Infant/Child/Adol SDOH Screenings 1950 [facility]- SDOH Screenings 1969 [facility]-Adult SDOH Screenings 1969 CT Colonography 1996 Colonoscopy 1996 FIT-DNA 1996 FIT 1996 FOBT 1996 Sigmoidoscopy 1996 [facility]-Colorectal Cancer Screening 1996 [facility]-RSV Vaccine: 60+ Years or (1 - Risk 60-74 years 1-dose series) 2011 [facility]-Abdominal Aortic Aneurysm (AAA) Screening 2016 [facility]-Pneumococcal Vaccine: 50+ Years (2 of 2 - PCV) 10/11/2019 10/11/2018, 03/23/2014 [id number] Vaccine ( season) 2024 08/08/2023, 07/13/2022, 07/23/2021, Additional history exists [facility]-Influenza Vaccine (#1) 06/24/202507/31, 07/20/2023, 07/16/2022, Additional history exists [facility]-Depression Screening 04/03/2026 04/03/2025, 03/24 [facility]-DTaP,Tdap,and Td Vaccines (2 - Td or Tdap) 01/08/2029 01/08/2019 [facility]-Hepatitis C Screening Completed 10/10/2018 [facility]-Hepatitis A Vaccines Aged Out 02/26/2019 No longer eligible based on patient's age to complete this topic [facility]-Zoster Vaccines Completed 09/14/2024, [facility]-Obesity Intervention Completed 025, 05/02/2024, 03/07/2024, Additional history exists HPV Vaccines Aged Out No longer eligi ble based on patient's age to complete this topic [facility]-HIB Vaccines Aged Out No longer e ligible based on patient's age to complete this topic [facility]-IPV Vaccines Aged Out No longer e ligible based on patient's age to complete this topic [facility]-Rotavirus Vaccines Aged Out No lo nger eligible based on patient's age to complete this topic Medical Devices Implanted Type Area Rehab Specialist Device Identifier Shelf Expiration Date Model / Serial / Lot Emble Mri S-Icd Subcutaneous Implantable Cardioverter Defibrillator Implanted:Qty: 1 on 07/15/2021 by Michael Grijalva MD at [facility] Implant 12/09/2022 [id number] / [id number] / [id number] / [id number] / Procedures Procedure Name Priority Date/Time Associated Diagnosis Comments CARDIAC DEVICE CHECK - REMOTE - ICD Routine 04/19/2025 9:37 AM EDT ICD (implantable cardioverter-defibr illator) in place HEPATITIS C ANTIBODY - ED W/REFLEX TO HCV QUANT PCR Routine 10/10/2018 12:44 AM EST from Last 3 Months or Most Recently Relevant to Health Maintenance Results * CARDIAC DEVICE CHECK - REMOTE [...] 1x gain. Presenting: regular ventricular rhythm Kristin Ansari APRN CV IMPLANTABLE CARDIAC DEV ICE PROCEDURES Final Result * [place] Hepatitis C Antibody (10/10/2018 12:44 AM EST) Bev Hepatitis C Ab NEGATIVE Reference Range: Negative SUNQUEST 10/10/2018 12:4 4 AM EST 10/10/2018 12:48 AM EST Clifton Gibson MD LAB BLOOD ORDERABLES Fin al Result SUNQUEST from Last 3 Months or Most Recently Relevant to Health Maintenance Insurance [facility] MEDICARE Care Teams Outdoor Fitness Trainer Relationship Specialty Start Date End Date Luisa Sandoval APRN [facility] [place] [address] PCP - General 03/06/21
--- OUTSIDE RECORDS SUMMARY | 2025-05-06 14:29 | XMS_ITS | Continuity of Care Document ---
Author Organization [facility], PAIN MEDICINE [address] [place] [address] Care Team Providers Care Security Strategist Name Role Phone CA SANDOVAL Referring Provider [phone] J[facility]NIOR JENSEN [facility] Administrative Assistant Assessment Encounter Date Assessment Date Assessment LastModified by Organization Details LastModified Time 04/05/2025 04/05/2025 This is a 74-year-old gentleman seen today for follow-up evaluation of low back pain that can radiate into the right hip and occasionally in the thoracic spine. He is obese. He has pain over the lumbar spine bilaterally referring into the right buttock described as a cramping drawing sensation into the proximal posterior thigh. He also describes weakness where it is difficult for him to get out of the floor. He does point in the SI joint as area of pain. Tyler finger sign +, thigh thrust +, sacral thrust +, ALEXEY + Initially the recommendation was for an L2-3 IL VIRGIL however we are not able to pursue injections at this time given patient is not cleared to hold Xarelto. As a result he continues to participate in physical therapy which has provided only pain exacerbation. PMH: A-fib (Xarelto) PSHx: Prelert SICD (not MRI compatible) 1. CT lumbar spine 02/26/2025 demonstrates severe disc base narrowing with Modic changes at L2-3 with moderate canal stenosis The above image findings were discussed with the patient. The patient has undergone no recent injection therapy. Presentation is consistent with lumbar stenosis with radiculopathy. I recommend: 1. Bilateral hip x-ray 2. We discussed possible treatment options including right SI joint injection versus bilateral L3-5 MBB with progression RFA of diagnostic 3. Weight loss recommendations reinforced 3. I recommend the patient engage in a core exercise plan such as yoga or pilates on a mcc basis. 4. L2-3 IL VIRGIL (hold Xarelto 3 days prior) CC requested. Patient and his believe that at cardiology follow-up last week they were verbally told he could hold Xarelto. Will send an updated cardiac clearance I had an in-depth discussion with the patient regarding the risks of the procedure including bleeding, infection, damage to surrounding structures, paralysis and even . We discussed the potential adverse effects of corticosteroid injection including flushing of the face, lipodystrophy, skin discoloration, elevated blood glucose, increased blood pressure. Risks of frequent steroid administration include weight gain, hormonal changes, mood changes, osteoporosis. External records were reviewed and discussed as above, including imaging, clinical notes, and relevant labs. [email or web address] Not available 04/19/2025 16:29:28 Plan of Treatment Reminders Order Date Submit Date Provider Last Modified By Organization Details Last Modified Time Details Appointments RECHECK 2024 01:30P M HÉCTOR REMY PA-C Not available Not available Not available NEUROLOG Y RECHECK 2024 08:45A M GLORIA MARTÍNEZ MD Not available Not available Not available FOLLOW UP DAK 2024 09:10A M JÚNIOR CEDENO MD Not available Not available Not available Lab None recorded . Referral None recorded . Procedures None recorded . Surgeries None recorded . Imaging XR, hip, bilatera l, 2 view [facility]24 [facility], [address] [place], [address], 04/05/2025 15:49:37 Medication Orders None recorded . Patient TargetsNo targets recorded. Patient Instructions Encounter Date Encounter Id Patient Instructions Last Modified By Organization Details Last Modified Time 04/05/2025 [id number] cardiac clearance* - ATTN: Dr. Varma Requesting cardiac clearance for patient to hold Xarelto 3 days prior to epidural steroid injection. Resume 24 hours after. Follow-up consultation with patient today who seems to believe you had given verbal clearance at appointment on 03/29/2025 [email or web address] Not available 04/12/2025 07:40:57 Reason for Referral None Reported. Results Created Date Observation Date Name Description Value Unit Range Abnormal Flag Note LastModifiedBy Organization Detail LastModifiedTime 04/05/2004/05/2025 XR, hip, bilat eral, 2 view [facility] [address] [place] [address] Mindy fairchild Name: BROWN fairchild : 1949 Patijomar fairchild Orderi ng Provid er: HÉCTOR MILLAY EXAM DATE: 2024 EXAM: XR SOLIS HIPS, 2 VWS COMPAR MARCELA: None. HISTOR Y: Bilate ral hip pain. FINDIN GS: There are mild degene rative change s in both hips. There is mild margin al spurri ng. The joint space appear s normal . There are mild degene rative change s in the SI joints . There is no acute fractu re. IMPRES FIDENCIO: 1. There are mild degene rative change s in the hips and pelvis . Interp reted By: Derrell boo MD Electr on ly Signed By: Derrell boo MD on 025 3:20 PM [facility] Radiology [address] [place] [address], [phone], 04/20/2025 16:34:57 Result Notes Documentation Provider Name and Address Organization Details Recorded Time Xr, Hip, Bilateral, 2 View : [facility] [address] [place] [address] Patient Name: BROWN MUSA Patient : 1950 Patient Ordering Provider: HÉCTOR MILLAY EXAM DATE: 04/05/2025 EXAM: XR SOLIS HIPS, 2 VWS COMPARISON: None. HISTORY: Bilateral hip pain. FINDINGS: There are mild degenerative changes in both hips. There is mild marginal spurring. The joint space appears normal. There are mild degenerative changes in the SI joints. There is no acute fracture. IMPRESSION: 1. There are mild degenerative changes in the hips and pelvis. Interpreted By: Marcial Yuen MD HÉCTOR REMY PA-C [address] [place] [address], [phone], [facility] 04/08/2025 07:49:15 Problems Name Problem SNOMED Code Status Onset Date Resolution Date Notes Provider Name and Address Organization Details Recorded Time Allergic rhinitis 82166900 Active 2015 From Automated Load;Provi brando: Juancarlos Crawley;St atus: Active Not Available [facility] 6 05:06:37 Sinusitis 71033908 Active 2015 From Automated Load;Provi brando: Juancarlos Crawley;St atus: Active Not Available [facility] 6 05:06:37 Loss of sense of smell 18889017 Active 2015 From Automated Load;Provi brando: Juancarlos Crawley;St atus: Active Not Available [facility] 6 05:06:37 Deviated nasal septum 331818872 Active 2015 From Automated Load;Provi brando: Juancarlos Crawley;St atus: Active Not Available [facility] 6 05:06:37 Wheezing 66166073 Active 2015 Provider: Juancarlos Crawley;St atus: Active Not Available [facility] 6 05:06:37 Problem Notes None recorded. Procedures Surgical History Date Name Laterality Status Provider Name and Address Organization Details Recorded Time 04/30/20 25 Lumbar Epidural Steroid Injection - Vivian completed LINDA HI MD [address] [place] [address], [phone], [facility] 04/30/2025 14:03:42 03/28/20 24 DAK - Cryo AK completed Maribel [facility] 03/28/2024 08:32:42 03/28/20 24 DAK - Destruction BN Lesions completed Maribel Dhillon [facility] 03/28/2024 08:28:52 defibrillation using automated external cardiac defibrillator completed Eleni Willingham [facility] 09/28/2023 12:54:45 external ventricular defibrillation completed [facility] 09/28/2023 12:55:14 direct current atrial defibrillation completed [facility] 09/28/2023 12:56:14 Imaging Results None recorded. Procedure Notes None recorded. Medical Equipment None Reported. Allergies Allergen ID Allergen Name Allergen Category Reaction Reaction Severity Criticality Documentation Date Start Date Code Code System Note Provider Name and Address Organization Details Recorded Time 589993 Lipitor medicatio n Not available Not available Not available 09/17/20162015 87735 5 RxNorm Comme nt: Creat ed By: Bren Dorantes reate d Date: 2015 2:13: 45 PM; Not Available [facility] 6 09:56:12 411990 lisinopri l medicatio n Not available Not available Not available 03/28/2024 90492 RxNorm cough [facility] 4 08:04:53 Medications Name Sig Start Date Stop Date Status Note LastModified by Organization Details LastModified Time Qvar 80 mcg/actua tion Metered Aerosol oral inhaler Two times a day 2015 active Frequenc y: bid;Medi cation Descript ion: beclomet hasone; Dosage:1 inhalati on; Route:in halation ; refills: 11; Quantity :1 aerosol Not Available Not Available Not Available Lasix 40 mg tablet Daily 09/28 completed Duration : 30 days;Magdi quency: daily;Al t Frequenc y: as direct.; Medicati on Descript ion: furosemi de; Dosage:1 ; Route:or al; refills: 5; Quantity :30 tablet Not Available Not Available Not Available metoprolo l succinate ER 200 mg tablet,ex tended release 24 hr Take 1 tablet every day by oral route. active Takes 150 mg daily Not Available Not Available Not Available bupropion HCl 100 mg tablet Take 1 tablet twice a day by oral route. active Not Available Not Available No t Available citalopra m 20 mg tablet active Medicati on Descript ion: citalopr am; Route:or al; refills: 0 Not Available Not Available Not Available nitroglyc radha 0.4 mg sublingua l tablet Place by sublingu al route as needed. active Not Available Not Available No t Available monteluka st 10 mg tablet Take 1 tablet every day by oral route. active Not Available Not Available No t Available isosorbid e mononitra te 10 mg tablet Every morning 09/28 completed Duration : 10 days;Magdi quency: qam;Medi cation Descript ion: isosorbi de mononitr ate; Route:or al; refills: 0; Quantity :30 tablet Not Available Not Available Not Available aspirin 81 mg tablet Daily 03/01 completed Duration : 30 days;Magdi quency: daily;Me dication Descript ion: aspirin; Dosage:1 ; Route:or al; refills: 0; Quantity :30 tablet Not Available Not Available Not Available furosemid e 20 mg tablet Take 1 tablet every day by oral route. active PRN Not Available Not Available No t Available losartan 100 mg tablet active Medicati on Descript ion: losartan ; Route:or al; refills: 0 Not Available Not Available Not Available rosuvasta tin 40 mg tablet Take 1 tablet every day by oral route. active Not Available Not Available No t Available omeprazol e active Medicati on Descript ion: omeprazo le; refills: 0 Not Available Not Available Not Available carvedilo l 09/28 completed Medicati on Descript ion: carvedil ol; Route:or al; refills: 0 Not Available Not Available Not Available simvastat in 09/28 completed Medicati on Descript ion: simvasta tin; Route:or al; refills: 0 Not Available Not Available Not Available ProAir HFA 90 mcg/actua tion aerosol inhaler Every six hours 2015 active Frequenc y: q6h;Alt Frequenc y: prn;Medi cation Descript ion: albutero l; Dosage:1 inhalati on; Route:in halation ; refills: 5; Quantity :1 aerosol Not Available Not Available Not Available Xarelto 20 mg tablet Take 1 tablet every day by oral route. active Not Available Not Available No t Available Vitals Date Recorded Body weight Body temperature Heart rate Oxygen saturation Oxygen saturation in Arterial blood by Pulse oximetry Systolic And Diastolic Provider Name and Address Organization Details Last Updated DateTime 5 866632. 72 g 97.2 [degF] 57 /min 97 % 97 % 124/76 mm[Hg] Suri Olivas [facility] 13:43:04 Social History Question Answer Notes LastModified by Organizat ion Details LastModified Time Tobacco Smoking Status Former Smoker Eleni merida, [facility] 09/28/2023 12:53:04 What Was The Date Of Your Most Recent Tobacco Screening? 04/05/2025 [email or web address] Information not available 04/05/2025 What Is Your Relationship Status? [email or web address] Information not available 09/28/2023 Sex: Male Functional Status Question Answer Note LastModified by Organizat ion Details LastModified Time Do you use any illicit or recreational drugs? No Information not available 09/28/2023 What is your level of alcohol consumption? Occasional [email or web address] Information not available 09/28/2023 Mental Status None recorded. Family History Relationship Description Onset Age of this Age Resolved Age Notes LastModified by Organization Details LastModified Time Mother Alzheimer's disease [email or web address] Not available 2022 12:47:47 Maternal Grandmother Alzheimer's disease [email or web address] Not available 2022 12:47:47 Maternal Uncle Alzheimer's disease [email or web address] Not available 2022 12:47:47 Maternal Aunt Alzheimer's disease x2 [email or web address] Not available 2022 12:47:47 Father Parkinson's disease Not available 2022 12:52:13 Unspecified Relation Heart disease [email or web address] Not available 2022 12:52:41 Medical History Condition Response Heart Problems Y Kidney Stones N Blood Transfusion N Emphysema N Colon/Rectal Disorders N Sexually Transmitted Disease N COPD N Depression Y Glaucoma N Pneumonia N Skin Problems N Measles N Meningitis N Heart Attack ([place]) Y Ulcers N Diabetes N Attempted Suicide N Anxiety Disorder N Varicose Veins N Rheumatic Fever N Bleeding Disorder N Hearing Loss N Arthritis Y Blood Clot N Tuberculosis N AIDS/HIV N Cancer N Stroke N Asthma N Radiation Therapy N Epilepsy/Seizures N Blood Thinners Y Sleep Apnea Y Thyroid Disorder N High Cholesterol Y Hepatitis N Neurologic Disorder N Liver Disease N Heart Disease Y Headaches N Fibromyalgia N Hypertension N Osteoporosis Y Endocrine Disorder N Kidney Disease N Past Encounters Encounter ID Performer Location Encounter Start Date Encounter Closed Date Diagnosis/Indication Diagnosis SNOMED-CT Code Diagnosis ICD10 Code Diagnosis Note [id number] HÉCTOR REMY PA-C PAIN MEDICINE [address] [place] [address] 04/05/2025 13:30:43 04/05/2025 15:49:37 Lumbar radiculopathy 031469487 M54.16 Degenerati on of lumbar intervertebral disc 14818719 M51.369 Lumbar spondylosis 74274 0009 M47.816 Spinal kael nosis of lumbar region 06421078 M48.062 Displaceme nt of lumbar intervertebral disc 4158833641 M51.26 Low back pain 777495834 M54.51 Inflammati on of sacroiliac joint 20209418 M46.1 Health Concerns Section Related Observation LastModified by Organization Detai ls LastModified Time None Recorded Concern Status LastModified by Organization Details LastModified Time None Recorded Payers Encounter Date Sequence Insurance Name Policy Number Policy Baugh Covered Member ID Baugh Member ID Guarantor Name 04/05/2025 1 [employer] (MEDICARE REPLACEMENT/A DVANTAGE - PPO) Brown Musa [id number] Brown Musa Notes Date Note Type Note Provider Name and Address Organization Details Recorded Time 04/05/2025 text/html Pain Management L-spine GISHReported bypatient.Location :LBP; right hip pain Quality:tightness; aching;sharp Severity:current pain level 3/10; worst pain 9/10;worsening;int erference with sleep Duration:constant Onset/Timing:chron ic; 5+ years (worsening in the last 7-8 mths) Context:cannot identify Alleviating Factors:nothing helps Aggravating Factors:getting out of bed; going from sit to stand; sitting; standing; walking Associated Symptoms:no numbness; no bladder compromise; no bowel compromise;weaknes s ADL (Activities of Daily Living):do not improve with medication Driving Impairments with Medications:no Prior Imaging:MRI (lumbar 02/26 or 02/27 @ [facility] per Ca Sandoval APRN) Prior EMG:none Previous Surgery:none Previous Injections:none Previous PT:Date completed: ; aggravated symptoms (Ongoing [facility] PT x 3 wks, 4 visits) Previous Certified Home Health Aide:did not help; Dr Asencio in [facility] , went yesterday Brown Musa is a 74 yo male here today for FUP solis low back pain that radiates down into Rt hip. Pt reports he went to [facility] PT 3 wks and had 4 Tx w/o any relief, this only increased the pain. LINDA HI MD [address] [place], [address], [facility] 04/19/2025 16:29:34
--- OUTSIDE RECORDS SUMMARY | 2025-05-06 14:29 | XMS_ITS | Encounter Summary ---
Author Organization Healthcare Address [address] [place] [address] Care Team Providers Care Telephone Collector Name Role Phone Sandoval, Luisa Aguila APRN Primary Care Provider [phone] Encounter Details Date Type Department Care Team (Latest Contact Info) Description 03/27/2025 Travel Social History Tobacco Use Types Packs/Day Years Used Date Smoking Tobacco: Former Smokeless Tobacco: Never Alcohol Use Standard Drinks/Week Comments Yes 0 (1 standard drink = 0.6 oz pur e alcohol) occ. PHQ-2 Answer Date Recorded Patient Health Questionnaire-2 Score 0 05/02/2024 PHQ-2A Answer Date Recorded Patient Health Questionnaire-2 [...] Description 08/21/2025 10:00 AM EDT Office Visit [facility] [place] [address] [facility], [address] [place] [address] Anton Varma MD [address] [place] [address] documented as of this encounter Visit Diagnoses Not on filedocumented in this encounter Additional Health Concerns Assessment Noted Time A fall risk assessment has been complete d for the patient 05/02/2024 2:22 PM EDT A Body Mass Index follow-up plan has been documented for the patient 05/02/2024 2:59 PM EDT documented as of this encounter Care Teams Telephone Collector Relationship Specialty Start Date End Date Luisa Sandoval, SHAUN [facility] [place] [address] PCP - General 03/06/21 documented as of this encounter
--- OUTSIDE RECORDS SUMMARY | 2025-05-06 14:29 | XMS_ITS | Encounter Summary ---
Author Organization Healthcare Address [address] [place] [address] Care Team Providers Care Deputy County Clerk Name Role Phone SandovalLuisa houser WORKERS COMPENSATION CLAIMS SUPERVISOR Primary Care Provider [phone] Reason for Visit * Reason Onset Date Comments HCN Clinical Concern/Question 03/11/2025 Encounter Details Date Type Department Care Team ([facility] st Contact Info) Description 03/11/2025 Telephone [facility] [place] [address] [facility], [address] [place] [address] None, None [address] [place] [address] HCN Clinical Concern/Question Social History Tobacco Use Types Packs/Day Years [...] encounter Miscellaneous Notes * Telephone Encounter - Mohini Saeed RN - 03/11/2025 2:11 PM EDT RN spoke with provider regarding cardiac clearance for pain injections for back. Per Dr. 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 RN called patient to let him know we are unable to provide cardiac clearance for pain injections. Heverbalized understanding. RN called [facility], Dr. Gilmer Park's office. Explained we cannot provide cardiac clearance for injections. They will let the provider know. Mohini RN * Telephone Encounter - Roxy Baldwin - 03/11/2025 9:17 AM EDT Clinical Concern/Question Reason for Call: Patient is needing cardiac clearance for pain shots in his back. Asking to speak with clinical staff. Best contact number: [phone] (home) Optimal time of day to reach caller: ANYTIME Additional comments/information from caller: None Note: Please do not reply to this message. Follow-up communication and further actions as a result of this message need to be communicated with the patient directly, if the patient is not active onMyChart. If the patient is active on MyChart, they will receive notification of the communication/outcome via [employer]. documented in this encounter Plan of Treatment Upcoming Encounters Date Type Department Care Team (Late st Contact Info) Description 08/21/2025 10:00 AM EDT Office Visit [facility] [place] [address] [facility], [address] [place] [address] Anton Varma MD [address] [place] [address] documented as of this encounter Visit Diagnoses Not on filedocumented in this encounter Additional Health Concerns Assessment Noted Time A fall risk assessment has been complete d for the patient 05/02/2024 2:22 PM EDT A Body Mass Index follow-up plan has been documented for the patient 05/02/2024 2:59 PM EDT documented as of this encounter Care Teams Deputy County Clerk Relationship Specialty Start Date End Date Luisa Sandoval APRN [address] [place] [address] PCP - General 5/14/21 documented as of this encounter
--- OUTSIDE RECORDS SUMMARY | 2025-05-06 14:29 | XMS_ITS | Referral Summary ---
Author Organization [facility] ([place], [place], [place], [place]) Address [address] [place] [address] Care Team Providers Care Sales Inspector Name Role Phone Ricki Bravo PA-C Unavailable [phone] Luisa Sandoval APRN Primary Care Provider [phone] Allergies No known active allergies Medications buPROPion XL (WELLBUTRIN XL) 150 MG 24 hr tablet Take 1 tablet (150 mg total) by mouth every morning. 03/30/2024 Active citalopram (CeleXA) 40 MG tablet Take 1 tablet (40 mg total) by mouth daily. 12/25/2024 Active furosemide (LASIX) 20 MG tablet Take 1 tablet (20 mg total) by mouth daily. 12/25/2024 Active losartan (COZAAR) 50 MG tablet Take 1 tablet (50 mg total) by mouth daily. 11/24/2024 Active metoprolol succinate (TOPROL-XL) 200 MG 24 hr tablet Take 1 tablet (200 mg total) by mouth daily. 06/21/2024 Active montelukast (SINGULAIR) 10 mg tablet Take 1 tablet (10 mg total) by mouth nightly. Active nitroglycerin (NITROSTAT) 0.[address] 1 tablet (0.4 mg total) under the tongue. Active omeprazole (PriLOSEC) 20 MG capsule Take 1 capsule (20 mg total) by mouth daily. Active Xarelto 20 mg tablet Take 1 tablet (20 mg total) by mouth daily with dinner. 12/24/2024 Active rosuvastatin (CRESTOR) 40 MG tablet Take 1 tablet (40 mg total) by mouth daily. Active Active Problems No known active problems Social History Tobacco Use Types Packs/Day Years Used Date Smoking Tobacco: Never Smokeless Tobacco: Never Tobacco Cessation:Counseling Given: Yes Sex and Gender Information Value Date Recorded Sex Assigned at Not on file Legal Sex Male 5:21 PM CDT Gender Identity Not on file Sexual Orientation Not on file Last Filed Vital Signs Vital Sign Reading Time Taken Comments Blood Pressure 124/80 01/28/2025 12:05 PM EDT Pulse 53 01/28/2025 12:05 PM EDT Temperature - - Respiratory Rate - - Oxygen Saturation - - Inhaled Oxygen Concentration - - Weight 108.9 kg (240 lb) 01/28/2025 12:05 PM EDT Height 167.6 cm (5' 6 ) 01/28/2025 12:05 PM EDT Body Mass Index 38.74 01/28/2025 12:05 PM EDT Plan of Treatment Not on file Insurance [employer] MEDICARE PPO Care Teams Sales Inspector Relationship Specialty Start Date End Date Luisa Sandoval, HYDROELECT[employer]IC PLANT ELECTRICIAN [address] [place] [address] PCP - General Family Medicine 01/28/25 Ricki Bravo PA-C [address] [facility] [address] [place] [address] Physician Car Sales Associate Orthopedic Surgery 01/28/25
--- OUTSIDE RECORDS SUMMARY | 2025-05-06 14:29 | XMS_ITS | Encounter Summary ---
Author Organization Healthcare Address [address] [place] [address] Care Team Providers Care Metal Engineering Process Worker Name Role Phone SandovalLuisa houser SHAUN Primary Care Provider [phone] Encounter Details Date Type Department Care Team (Latest Contact Info) Description 04/03/2025 Travel Social History Tobacco Use Types Packs/Day [...] on file documented as of this encounter Functional Status * Over the past 2 weeks, how often have you been bothered by any of the following problems? Question Answer Date of Assessment Author Little interest or pleasure in doing things More than half the days 04/03/2025 3:00 PM Nicolle Gardner Feeling down, depressed, or hopeless Several days 04/03/2025 3:00 PM Lexy Gardner Patient Health Questionnaire-2 Score 3 04/03/2025 3:00 PM Nicolle Gardner * Question Answer Date of Assessment Author [...] Not at all 04/03/2025 3:00 PM Nicolle Gadrner Trouble concentrating on things, such as reading [...] Nicolle Gardner documented as of this encounter Plan of Treatment Upcoming Encounters Date Type Department Care Team (Late st Contact Info) Description 08/21/2025 10:00 AM EDT Office Visit [facility] [place] [address] [facility], [address] [place] [address] Anton Varma MD [address] [place] [address] documented as of this encounter Visit Diagnoses Not on filedocumented in this encounter Additional Health Concerns Assessment Noted Time PHQ-9 Depression Total Score: 10 2 025 3:00 PM EDT A fall risk assessment has been complete d for the patient 04/03/2025 3:00 PM EDT A Body Mass Index follow-up plan has been documented for the patient 04/03/2025 4:23 PM EDT documented as of this encounter Care Teams Metal Engineering Process Worker Relationship Specialty Start Date End Date Luisa Sandoval APRN [address] [place] [address] PCP - General 03/06/21 documented as of this encounter
--- OUTSIDE RECORDS SUMMARY | 2025-05-06 14:29 | XMS_ITS | Encounter Summary ---
Author Organization [facility] Address [address] [place] [address] Care Team Providers Care Front Desk Admin Name Role Phone SandovalLuisa houser SHAUN Primary Care Provider [phone] Reason for Visit * Reason Comments Med Refill Encounter Details Date Type Department Care Team ([facility] Contact Info) Description 04/01/2025 Refill [facility] [place] [address], [address] [place] [address] Anton Varma MD [address] [place] [address] Social History Tobacco Use Types Packs/Day Years [...] Encounters Date Type Department Care Team (Late Contact Info) Description 08/21/2025 10:00 AM EDT Office Visit [facility] [place] [address], [address] [place] [address] Anton Varma MD [address] [place] [address] documented as of this encounter Visit Diagnoses Not on filedocumented in this encounter Additional Health Concerns Assessment Noted Time A fall risk assessment has been complete d for the patient 05/02/2024 2:22 PM EDT A Body Mass Index follow-up plan has been documented for the patient 05/02/2024 2:59 PM EDT documented as of this encounter Care Teams Front Desk Admin Relationship Specialty Start Date End Date Luisa Sandoval APRN [address] [place] [address] PCP - General 03/06/21 documented as of this encounter
--- OUTSIDE RECORDS SUMMARY | 2025-05-06 14:29 | XMS_ITS | Encounter Summary ---
Author Organization Healthcare Address [address] [place] [address] Care Team Providers Care Electrode Cleaning Machine Operator Name Role Phone SandovalLuisa houser SHAUN Primary Care Provider [phone] Encounter Details Date Type Department Care Team (Latest Contact Info) Description 04/19/2025 Travel Social History Tobacco Use Types Packs/Day [...] Description 08/21/2025 10:00 AM EDT Office Visit [facility] [place] [address] [facility], [address] [place] [address] Anton Varma MD [address] [place] [address] documented as of this encounter [...] documented as of this encounter Care Teams Electrode Cleaning Machine Operator Relationship Specialty Start Date End Date Luisa Sandoval APRN [address] [place] [address] PCP - General 03/06/21 documented as of this encounter
--- OUTSIDE RECORDS SUMMARY | 2025-05-06 14:29 | XMS_ITS | Encounter Summary ---
Author Organization Healthcare Address [address] [place] [address] Care Team Providers Care Rotary Drier Operator Name Role Phone SandovalLuisa houser SHAUN Primary Care Provider [phone] Encounter Details Date Type Department Care Team ([facility] st Contact Info) Description 04/09/2025 Telephone [facility] [place] [address] [facility], [address] [place] [address] Mohini Saeed RN CH-ADULT [facility] Social History Tobacco Use Types Packs/Day Years [...] Telephone Encounter - Anton Varma MD - 04/15/2025 8:09 AM EDT Lipids reviewed from OSH dated 09/15/2024. Available in media tab uploaded 04/12/2025. LDL is 58 at that time. No changes to lipid regimen. Plan for at least annual lipid panel, next around 09/2025. * Telephone Encounter - Mohini Saeed RN - 04/09/2025 8:43 AM EDT RN called [facility] to obtain lipid panel. They are sending recent labs to [phone]. Mohini RN documented in this encounter Plan of Treatment Upcoming Encounters Date Type Department Care Team (Late st Contact Info) Description 08/21/2025 10:00 AM EDT Office Visit [facility] [place] [address] [facility], [address] [place] [address] Anton Varma MD [address] [place] [address] documented as of this encounter Visit [...] documented as of this encounter Care Teams Rotary Drier Operator Relationship Specialty Start Date End Date Luisa Sandoval APRN [address] [place] [address] PCP - General 03/06/21 documented as of this encounter
--- OUTSIDE RECORDS SUMMARY | 2025-05-06 14:29 | XMS_ITS | Clinical Summary ---
Author Organization [facility] ([place], [place], [place], [place]) Address [address] [place] [address] Care Team Providers Care Incendiary Powder Mixer Name Role Phone Ricki Bravo PA-C Unavailable [phone] Luisa Sandoval APRN Primary Care Provider [phone] Allergies No known active allergies Medications buPROPion [...] Active Active Problems No known active problems Family History Medical History Relation Name Comments Arthritis Other Relation Name Status Comments Other Social History Tobacco Use Types Packs/Day Years [...] 01/28/2025 12:05 PM EDT Plan of Treatment Health Maintenance Due Date Last Done Comments CT Colonography 1950 Colonoscopy 1950 Colorectal Cancer Screening 1950 FOBT/FIT 1951 Fit-DNA (Cologuard) 1950 Sigmoidoscopy 1950 Depression Screening (12+) 1963 Hepatitis C Screening 1969 Pneumococcal 50+ years (2 of 2 - PCV) 10/11/2019 10/11/2018, 03/23/2014 COVID-19 VACCINE (5 - 2023-2 5 season) 2024 07/13/2022, 07/23/2021, 12/10/2020, Additional history exists Falls Risk Screening 10/24/2024 Medicare IPPE (Welcome to Medicare) [id number] 10/24/2024 Influenza Vaccine (#1) 2025 3, 07/27/2021, 07/28/2020, Additional history exists Tobacco Cessation Counseling and Screening (12+) 01/28/2026 01/28/2025 Respiratory Syncytial Virus (RSV) Adult or (1 - 1-dose 75+ series) 2026 DTAP/TDAP/TD VACCINES (2 - T d or Tdap) 01/08/2029 01/08/2019 Shingles Vaccine (Zoster) Completed 09/14/2024, 09/2024 Insurance H[employer] MEDICARE PPO Care Teams Incendiary Powder Mixer Relationship Specialty Start Date End Date Luisa Sandoval, DYE EXPERT [address] [place] [address] PCP - General Family Medicine 01/28/25 Ricki Bravo PA-C [address] [facility] [address] [place] [address] Physician Crew Director Orthopedic Surgery 01/28/25
--- OUTSIDE RECORDS SUMMARY | 2025-05-06 14:29 | XMS_ITS | Data Portability ---
Author Organization [employer] [facility] Address [address] [place] [address] Assessment No assessment recorded. Plan of Treatment Reminders Order Date Submit Date Provider Last Modified By Organization Details Last Modified Time Details Appointments None recorded. Lab TSH, ultra-sensi tive, serum 2024 025 [facility] [address] [place], [address], 5 07:07:26 CBC w/ auto diff 2024 025 CARTHAGE [facility] [address] [place], [address], 5 07:07:24 CMP, serum or plasma 2024 025 [facility]THAGE [facility] [address] [place], [address], 5 07:07:25 cobalamin and folate panel, serum 2024 025 [facility] [address] [place], [address], 5 07:07:25 vitamin D, 25-hydroxy, total, serum 2024 025 [facility] [address] [place], [address], 07:07:26 BMP, serum or plasma 2024 025 [email or web address] [facility] [address] [place] [address], [place], [address], 10:10:04 Referral neurologist referral - he is already established [address] Neu[facility], [address] [facility], [place], [address], 09:42:00 Procedures cerumen removal (PROC) [address], [address] [place] [address], [place], [address], 11:35:17 Surgeries None recorded. Imaging US, duplex, carotid artery - same day as head CT please [address] (Scheduling), [address], [place], [address], 5 09:20:06 CT, head, w/o contrast - same day as US please [address] (Scheduling), [address], [place], [address], 5 09:20:31 home sleep study [address] [facility], [address] [facility], [facility], [place], [address], 5 13:15:07 CT, lumbar spine, w/wo contrast - first available appt 2024 025 [facility], [address], [place], [address], 16:55:36 Medication Orders meclizine 25 mg tablet 2024 025 [facility], [address] [place] [address], [address], 5 12:13:39 fluconazole 150 mg tablet 2024 025 [facility], [address] [place] [address], [address], 5 12:13:39 nystatin 100,000 unit/gram topical powder 2024 025 [facility], [address] [place] [address], [address], 5 15:39:44 Medrol (Rafiq) 4 mg tablets in a dose pack 2024 025 [facility], [address] [place] [address], [address], 5 09:17:37 hydroxyzine HCl 25 mg tablet 2024 025 [facility], [address] [place] [address], [address], 5 11:38:03 Patient TargetsNo targets recorded. Patient InstructionsNo instructions recorded. Reason for Referral Neurologist Referral for Gutierrez [email or web address] he is already established Referring Physician: Luisa Sandoval, Family Medicine, Encounter Date: 04/24/2025 Results Created Date Observation Date Name Description Value Unit Range Abnormal Flag Note LastModifiedBy Organization Detail LastModifiedTime 03/15/2003/16/2025 CBC WITH DIFFE RENTI AL/PL ATELE T WBC 7.2 x10e3 /uL 3.4-10 .8 normal Not Available [facility] ([facility]) [address] [facility], [place], [address], 03/16/2025 07:07:24 03/15/2003/16/2025 CBC WITH DIFFE RENTI AL/PL ATELE T RBC 5.51 x10e6 /uL 4.14-5 .80 normal Not Available [facility] ([facility]) [address] [place], [address], 03/16/2025 07:07:24 03/15/20 25 03/16/2025 CBC WITH DIFFE RENTI AL/PL ATELE T hemoglobin 16.0 g/dL 13.0-1 7.7 normal Not Available [facility] ([facility]) [address] [place], [address], 03/16/2025 07:07:24 03/15/2003/16/2025 CBC WITH DIFFE RENTI AL/PL ATELE T hematocrit 50.8 % 37.5-5 1.0 normal Not Available [facility] ([facility]) [address] [place], [address], 03/16/2025 07:07:24 03/15/20 25 03/16/2025 CBC WITH DIFFE RENTI AL/PL ATELE T MCV 92 fL 79-97 normal Not Available [facility] ([facility]) [address] [place], [address], 03/16/2025 07:07:24 03/15/2003/16/2025 CBC WITH DIFFE RENTI AL/PL ATELE T MCH 29.0 pg 26.6-3 3.0 normal Not Available [facility] ([facility]) [address] [place], [address], 03/16/2025 07:07:24 03/15/20 25 03/16/2025 CBC WITH DIFFE RENTI AL/PL ATELE T MCHC 31.5 g/dL 31.5-3 5.7 normal Not Available [facility] ([facility]) [address] [place], [address], 03/16/2025 07:07:24 03/15/20 25 03/16/2025 CBC WITH DIFFE RENTI AL/PL ATELE T RDW 14.5 % 11.6-1 5.4 Not Available [facility] ([facility]) [address] [facility], [place], [address], 03/16/2025 07:07:24 03/15/20 25 03/16/2025 CBC WITH DIFFE RENTI AL/PL ATELE T platelets 172 x10e3 /uL 150-45 0 normal Not Available [facility] ([facility]) [address] [facility], [place], [address], 03/16/2025 07:07:24 03/15/20 25 03/16/2025 CBC WITH DIFFE RENTI AL/PL ATELE T neutrophils 71 % not estab. normal Not Available [facility] ([facility]) [address] [facility], [place], [address], 03/16/2025 07:07:24 03/15/20 25 03/16/2025 CBC WITH DIFFE RENTI AL/PL ATELE T lymphs 13 % not estab. normal Not Available [facility] ([facility]) [address] [facility], [place], [address], 03/16/2025 07:07:24 03/15/20 25 03/16/2025 CBC WITH DIFFE RENTI AL/PL ATELE T monocytes 10 % not estab. normal Not Available [facility] ([facility]) [address] [facility], [place], [address], 03/16/2025 07:07:24 03/15/20 25 03/16/2025 CBC WITH DIFFE RENTI AL/PL ATELE T eos 4 % not estab. normal Not Available [facility] ([facility]) [address] [facility], [place], [address], 03/16/2025 07:07:24 03/15/20 25 03/16/2025 CBC WITH DIFFE RENTI AL/PL ATELE T basos 1 % not estab. normal Not Available [facility] ([facility]) [address] 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, [place], [address], 03/16/2025 07:07:24 03/15/20 25 03/16/2025 CBC WITH DIFFE RENTI AL/PL ATELE T neutrophils (absolute) 5.1 x10e3 /uL 1.4-7. 0 normal Not Available [facility] ([facility]) [address] [facility], [place], [address], 03/16/2025 07:07:24 03/15/20 25 03/16/2025 CBC WITH DIFFE RENTI AL/PL ATELE T lymphs (absolute) 0.9 x10e3 /uL 0.7-3. 1 normal Not Available [facility] ([facility]) [address] [place], [address], 03/16/2025 07:07:24 03/15/20 25 03/16/2025 CBC WITH DIFFE RENTI AL/PL ATELE T monocytes(ab solute) 0.7 x10e3 /uL 0.1-0. 9 normal Not Available [facility] ([facility]) [address] [place], [address], 03/16/2025 07:07:24 03/15/20 25 03/16/2025 CBC WITH DIFFE RENTI AL/PL ATELE T eos (absolute) 0.3 x10e3 /uL 0.0-0. 4 normal Not Available [facility] ([facility]) [address] [place], [address], 03/16/2025 07:07:24 03/15/20 25 03/16/2025 CBC WITH DIFFE RENTI AL/PL ATELE T baso (absolute) 0.1 x10e3 /uL 0.0-0. 2 normal Not Available [facility] ([facility]) [address] [facility], [place], [address], 03/16/2025 07:07:24 03/15/20 25 03/16/2025 CBC WITH DIFFE RENTI AL/PL ATELE T immature granulocytes 1 % not estab. Not Available [facility] ([facility]) [address] [facility], [place], [address], 03/16/2025 07:07:24 03/15/20 25 03/16/2025 CBC WITH DIFFE RENTI AL/PL ATELE T immature grans (abs) 0.1 x10e3 /uL 0.0-0. 1 Not Available [facility] ([facility]) [address] 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, [place], [address], 03/16/2025 07:07:24 03/15/20 25 03/16/2025 CBC WITH DIFFE RENTI AL/PL ATELE T hematology comments: SAFE TECHNICIAN Not Available [facility] ([facility]) [address] [facility], [place], [address], 03/16/2025 07:07:24 03/15/20 25 03/16/2025 COMP. METAB OLIC PANEL (14) glucose 91 mg/dL 70-99 normal Not Available [facility] ([facility]) [address] [place], [address], 03/16/2025 07:07:25 03/15/20 25 03/16/2025 COMP. METAB OLIC PANEL (14) BUN 15 mg/dL 8-27 normal Not Available [facility] ([facility]) [address] [facility] [place], [address], 03/16/2025 07:07:25 03/15/20 25 03/16/2025 COMP. METAB OLIC PANEL (14) creatinine 1.05 mg/dL 0.76-1 .27 normal Not Available [facility] ([facility]) [address] [place], [address], 03/16/2025 07:07:25 03/15/20 25 03/16/2025 COMP. METAB OLIC PANEL (14) eGFR 75 mL/mi n/1.7 3 >59 normal Not Available [facility] ([facility]) [address] [facility] [place], [address], 03/16/2025 07:07:25 03/15/20 25 03/16/2025 COMP. METAB OLIC PANEL (14) BUN/creatini ne ratio 14 10-24 normal Not Available [facility] ([facility]) [address] [facility] [place], [address], 03/16/2025 07:07:25 03/15/20 25 03/16/2025 COMP. METAB OLIC PANEL (14) sodium 136 mmol/ L 134-14 4 normal Not Available [facility] ([facility]) [address] [facility] [place], [address], 03/16/2025 07:07:25 03/15/20 25 03/16/2025 COMP. METAB OLIC PANEL (14) potassium 3.9 mmol/ L 3.5-5. 2 normal Not Available [facility] ([facility]) [address] [facility] [place], [address], 03/16/2025 07:07:25 03/15/20 25 03/16/2025 COMP. METAB OLIC PANEL (14) chloride 98 mmol/ L 96-106 normal Not Available [facility] ([place] [facility]) [address] [facility] [place], [address], 03/16/2025 07:07:25 03/15/20 25 03/16/2025 COMP. METAB OLIC PANEL (14) carbon dioxide, total 25 mmol/ L 20-29 normal Not Available [facility] ([facility]) [address] [facility] [place], [address], 03/16/2025 07:07:25 03/15/20 25 03/16/2025 COMP. METAB OLIC PANEL (14) calcium 9.6 mg/dL 8.6-10 .2 normal Not Available [facility] ([facility]) [address] [facility] [place], [address], 03/16/2025 07:07:25 03/15/20 25 03/16/2025 COMP. METAB OLIC PANEL (14) protein, total 7.0 g/dL 6.0-8. 5 normal Not Available [facility] ([facility]) [address] [facility] [place], [address], 03/16/2025 07:07:25 03/15/20 25 03/16/2025 COMP. METAB OLIC PANEL (14) albumin 4.5 g/dL 3.8-4. 8 normal Not Available [facility] ([facility]) [address] [facility] [place], [address], 03/16/2025 07:07:25 03/15/20 25 03/16/2025 COMP. METAB OLIC PANEL (14) globulin, total 2.5 g/dL 1.5-4. 5 Not Available [facility] ([facility]) [address] [facility] [place], [address], 03/16/2025 07:07:25 03/15/20 25 03/16/2025 COMP. METAB OLIC PANEL (14) bilirubin, total 0.6 mg/dL 0.0-1. 2 normal Not Available [facility] ([facility]) [address] [facility] [place], [address], 03/16/2025 07:07:25 03/15/20 25 03/16/2025 COMP. METAB OLIC PANEL (14) alkaline phosphatase 64 IU/L 44-121 normal Not Available [facility] ([facility]) [address] [facility] [place], [address], 03/16/2025 07:07:25 03/15/20 25 03/16/2025 COMP. METAB OLIC PANEL (14) AST (SGOT) 25 IU/L 0-40 normal Not Available [facility] ([facility]) [address] [facility] [place], [address], 03/16/2025 07:07:25 03/15/20 25 03/16/2025 COMP. METAB OLIC PANEL (14) ALT (SGPT) 31 IU/L 0-44 normal Not Available [facility] ([facility]) [address] [facility] [place], [address], 03/16/2025 07:07:25 03/15/20 25 03/16/2025 VITAM IN B12 AND FOLAT E vitamin B12 360 pg/mL 232-12 45 normal Not Available [facility] ([facility]) [address] [facility] [place], [address], 03/16/2025 07:07:25 03/15/20 25 03/16/2025 VITAM IN B12 AND FOLAT E folate (folic acid), serum 5.7 NG/mL >3.0 normal A serum folat e juan pablo ntrat ion of less than 3.1 ng/mL is consi dered to repre sent clini paulina defic iency . Not Available [facility] ([facility]) [address] [facility] [place], [address], 03/16/2025 07:07:25 03/15/20 25 03/16/2025 VITAM IN D, 25-HY DROXY vitamin D, 25-hydroxy 46.2 NG/mL 30.0-1 00.0 Vitam in D defic iency has been defin ed by the Insti tute of Medic ine and an Endoc rine Socie ty pract ice guide line as a level of serum 25-OH vitam in D less than 20 ng/mL (1,2) . The Endoc rine Socie ty went on to furth er defin e vitam in D insuf ficie ncy as a level betwe en 21 and 29 ng/mL (2). 1. IOM (Inst itute of Medic ine). 2010. Dieta ry refer ence intak es for calci um and D. Davi palacio [place]: [facility] . 2. Davin vieyra [place], Keron ramirez [place], Bisch off-F errar i TAYLOR, et al. Evalu ation , treat ment, and preve ntion of vitam in D defic iency : an Endoc rine Socie ty clini paulina pract ice guide line. JCEM. 2010; 96(7) :1911 -30. Not Available [facility] ([facility]) [address] [place], [address], 03/16/2025 07:07:26 03/15/20 25 03/16/2025 TSH RFX ON ABNOR MAL TO FREE T4 TSH 2.310 uIU/m L 0.450- 4.500 normal Not Available [facility] ([facility]) [address] [place], [address], 03/16/2025 07:07:26 02/27/20 25 02/26/2025 CT, lumba r spine , w/wo contr ast No observ ation record ed. [email or web address] [facility] [address], [place], [address], 02/27/2025 11:30:35 Result Notes None recorded. Problems Name Problem SNOMED Code Status Onset Date Resolution Date Notes Provider Name and Address Organization Details Recorded Time Spinal stenosis of lumbosac ral region 691392007 Active 2024 Luisa Sandoval APRN [address] [place], [address] , [facility] [employer]. 05/07/202 5 11:30:52 Allergy to contrast media 659334441 Active 2024 Luisa Sandoval APRN [address] [place] [address], [address] , [employer] 5 10:05:37 Fatigue 25550383 Active 2024 Luisa Sandoval APRN [address] [place] [address], [address] , [employer] 5 08:35:22 Obstruct lavern sleep apnea syndrome 20093662 Active 2024 Luisa Sandoval APRN [address] [place] [address], [address] , [employer] 08:41:53 Intermit tent vertigo 710539136 Active 2024 Luisa Sandoval APRN [address] [place] [address], [address] [place] [address] , [employer] 5 14:59:30 Impacted cerumen of bilatera l ears 68444645849 85804 Active 2024 Luisa Sandoval APRN [address] [place] [address], [address] [place] [address] , [employer] 5 15:00:34 Candidal intertri go 306335717 Active 2024 Luisa Sandoval APRN [address] [place] [address], [address] [place] [address] , [employer] 5 15:02:32 Dizzines s 813690646 Active 2024 Luisa Sandoval APRN [address] [place] [address], [address] , [employer] 5 11:39:56 Blurring of visual image 819291884 Active 2024 Luisa Sandoval APRN [address] [place] [address], [address] , [employer] 5 11:59:00 Pertussi s 37592958 Completed 201806/14/2019 Not Available [facility] 2 21:19:56 Mild recurren t major depressi on 95185395 Active 2020 Problem Code: F33.0; Problem Code Type: ICD-10; Not Available [facility] 2 21:19:56 Hyperten sive disorder 48410479 Active 2018 Problem Code: I10; Problem Code Type: ICD-10; Not Available [facility] 2 21:19:56 Atherosc lerosis of coronary artery without angina pectoris 57392521051 4103 Active 2019 Not Available [facility] 21:19:56 Chronic systolic heart failure 212393170 Active 2021 Not Available [facility] 21:19:56 Acute pansinus itis 8121744 Completed 201807/14/2022 Problem Code: J01.40; Problem Code Type: ICD-10; STEPHAN merida, [employer] 12:15:57 Acute sinusiti s 34816756 Completed 201907/14/2022 Problem Code: J01.90; Problem Code Type: ICD-10; STEPHAN merida, [employer] 12:16:18 Acute sinusiti s 02666393 Completed 202003/22/2022 Problem Code: J01.90; Problem Code Type: ICD-10; STEPHAN merida, [employer] 12:16:18 Bronchop neumonia 951682517 Completed 201712/05/2018 Problem Code: J18.0; Problem Code Type: ICD-10; Not Available [facility] 21:19:57 Chronic obstruct lavern pulmonar y disease with acute lower respirat ory infectio n 738695869 Completed 201806/14/2019 Problem Code: J44.0; Problem Code Type: ICD-10; Not Available [facility] 2 21:19:57 Chronic obstruct lavern pulmonar y disease with acute lower respirat ory infectio n 686159955 Completed 201706/14/2019 Problem Code: J44.0; Problem Code Type: ICD-10; Not Available [facility] 2 21:19:57 Acute bronchit is co-occur rent with bronchie ctasis 994011220 Completed 201907/14/2022 Problem Code: J47.0; Problem Code Type: ICD-10; STEPHAN LEE null, [employer] 2 12:15:46 Chronic obstruct lavern pulmonar y disease 11557814 Active 2017 Problem Code: J44.9; Problem Code Type: ICD-10; Not Available [facility] 2 21:19:57 Pleural effusion 06293935 Completed 201904/03/2020 Not Available [facility] 2 21:19:57 Gastroes ophageal reflux disease without esophagi tis 277269608 Active 2018 Not Available [facility] 2 21:19:57 Umbilica l hernia 937715602 Active 2021 Problem Code: K42.9; Problem Code Type: ICD-10; Not Available [facility] 2 21:19:57 Melena 8601857 Completed 201806/14/2019 Problem Code: K92.1; Problem Code Type: ICD-10; Not Available [facility] 2 21:19:58 Pain in right hand 22810208734 9109 Completed 201807/14/2022 Problem Code: M79.641; Problem Code Type: ICD-10; STEPHAN LEE null, [employer] 2 12:17:04 Pain of left lower leg 93596221210 9101 Completed 202007/14/2022 Problem Code: M79.662; Problem Code Type: ICD-10; STEPHAN LEE null, [employer] 2 12:16:57 Pain in left foot 89998576076 9107 Completed 202007/14/2022 Problem Code: M79.672; Problem Code Type: ICD-10; STEPHAN merida, [employer] 2 12:17:06 Pain in toe 853277550 Completed 202007/14/2022 STEPHAN LEE null, [employer] 2 12:16:54 Dyspnea 322642460 Completed 201907/14/2022 Problem Code: R06.00; Problem Code Type: ICD-10; STEPHAN LEE null, [employer] 2 12:16:26 Nocturia 749172063 Completed 201907/14/2022 Problem Code: R35.1; Problem Code Type: ICD-10; STEPHAN LEE null, [employer] 2 12:16:39 Finding of general energy 761259018 Completed 201904/03/2020 Problem Code: R53.83; Problem Code Type: ICD-10; Not Available [facility] 2 21:19:59 Hypergly cemia 52341472 Completed 202003/22/2022 Problem Code: R73.9; Problem Code Type: ICD-10; Not Available [facility] 2 21:19:59 Abrasion of skin of forearm 114730831 Completed 201807/14/2022 STEPHAN LEE null, [employer] 2 12:15:40 General examinat ion of patient Completed 201912/23/2020 Not Available [facility] 2 21:19:59 Acute pansinus itis 6370311 Completed 201707/05/2018 Problem Code: J01.40; Problem Code Type: ICD-10; STEPHAN LEE null, [employer] 2 12:15:57 Influenz a vaccine needed 03803391028 06 Completed 201908/25/2020 Problem Code: Z23; Problem Code Type: ICD-10; Not Available [facility] 21:20:00 Screenin g for malignan t neoplasm of prostate Completed 201712/05/2018 Problem Code: Z12.5; Problem Code Type: ICD-10; Not Available [facility] 2 21:20:00 Body mass index 30+ - obesity 640378409 Active 2019 Problem Code: Z68.37; Problem Code Type: ICD-10; Not Available [facility] 2 21:20:01 Body mass index 30+ - obesity 790711734 Completed 201708/25/2020 Problem Code: Z68.35; Problem Code Type: ICD-10; Not Available [facility] 21:20:01 Acute sinusiti s 34872452 Completed 201707/05/2018 Problem Code: 461; Problem Code Type: ICD-9; STEPHAN merida [employer] 12:16:18 Screenin g for cancer Completed 201712/05/2018 Not Available [facility] 21:20:02 Problem Notes None recorded. Procedures Surgical History Date Name Laterality Status Provider Name and Address Organization Details Recorded Time 5 Cerumen Removal completed Luisa Sandoval APRN [address] [place] [address], [phone] [employer] 04/14/2025 19:47:00 placement of stent in coronary artery completed [employer] 07/14/2022 12:18:41 Pacemaker completed [employer] 07/14/2022 12:18:50 Imaging Results None recorded. Procedure Notes None recorded. Medical Equipment None Reported. Allergies Allergen ID Allergen Name Allergen Category Reaction Reaction Severity Criticality Documentation Date Start Date Code Code System Note Provider Name and Address Organization Details Recorded Time 71470 Lipitor medicatio n Not available Not available Not available 06/29/2022 84474 5 RxNorm Not Available [facility] 22:54:53 75294 Iodinated contrast media (substanc e) medicatio n hives Not available Not available 03/04/20252024 05013 2003 SNOMED Luisa Sandoval, SHAUN [address] [facility], [place], [address], [facility] [employer] 5 10:06:44 Medications Name Sig Start [...] Available Not Available Not Available amoxicillin 500 mg-potassjasonu m clavulanate 125 mg tablet take 1 [...] Details Last Updated DateTime 5 167.64 cm 38.9 kg/m2 141101. 48 g 98 [degF] 62 /min 94 % 94 % 106/63 mm[Hg] RACHEL [facility] 5 10:54:50 Date Recorded Body height Body mass index (BMI) Body weight Body temperature Heart rate Oxygen saturation Oxygen saturation in Arterial blood by Pulse oximetry Systolic And Diastolic Provider Name and Address Organization Details Last Updated DateTime 5 167.64 cm 39.5 kg/m2 954036. 41 g 97.9 [degF] 62 /min 92 % 92 % 115/60 mm[Hg] RACHEL [employer] 5 09:57:05 Date Recorded Body height Body mass index (BMI) Body weight Body temperature Heart rate Oxygen saturation Oxygen saturation in Arterial blood by Pulse oximetry Systolic And Diastolic Provider Name and Address Organization Details Last Updated DateTime 5 167.64 cm 39.2 kg/m2 540132. 51 g 97.3 [degF] 61 /min 93 % 93 % 126/49 mm[Hg] RACHEL [employer] 5 08:32:36 Date Recorded Body height Body mass index (BMI) Body weight Body temperature Heart rate Oxygen saturation Oxygen saturation in Arterial blood by Pulse oximetry Systolic And Diastolic Provider Name and Address Organization Details Last Updated DateTime 5 167.64 cm 39.2 kg/m2 516583. 23 g 98.3 [degF] 58 /min 92 % 92 % 114/44 mm[Hg] RACHEL [employer] 5 14:46:05 Date Recorded Body mass index (BMI) Body weight Body temperature Heart rate Oxygen saturation Oxygen saturation in Arterial blood by Pulse oximetry Systolic And Diastolic Provider Name and Address Organization Details Last Updated DateTime 5 38.9 kg/m2 104474. 04 g 98.1 [degF] 58 /min 91 % 91 % 126/68 mm[Hg] RACHEL [employer] 5 11:36:58 Date Recorded Body height Provider Name an d Address Organization Details Last Updated DateTime 04/24/2025 167.64 cm Janice Milvia Complexasveta Reeves [employer] 04/24/2025 11:32:47 Social History Question Answer Notes LastModified by Organizat ion Details LastModified Time Tobacco Smoking Status Former Smoker STEPHAN merida [facility] [employer] 07/14/2022 12:18:09 Is Your Home Air Conditioned? [...] quadrivalent, PF 3 completed Luisa Sandoval APRN [address] [place] [address], [id number], [employer] 07/20/2023 10:14:19 COVID-19, mRNA, LNP-S, PF, lawson-sucrose, 30 mcg/0.3 mL 3 completed Marissa Starre null, [employer] 08/08/2023 08:33:31 zoster recombinant 4 completed Martita Cosme null, [employer] 07/05/2024 11:39:28 Influenza, high-dose, trivalent, PF 4 completed Luisa Sandoval APRN [address] [place] [address], [id number], [employer] 08/05/2024 21:44:40 zoster recombinant 4 completed Luisa Sandoval APRN [address] [place] [address], [address] [place] [address], [employer] 09/16/2024 20:50:46 COVID-19, mRNA, LNP-S, PF, 30 mcg/0.3 mL dose 1 completed Marissa Landischie null, [employer] 10/19/2023 14:26:46 COVID-19, mRNA, LNP-S, PF, 30 mcg/0.3 mL dose 1 completed Marissa Landischie null, [employer] 10/19/2023 14:26:46 COVID-19, mRNA, LNP-S, PF, 30 mcg/0.3 mL dose 1 completed Marissa Summit null, [employer] 10/19/2023 14:26:46 [facility]dap 9 completed [facility]:02:01 COVID-19, mRNA, LNP-S, bivalent, PF, 30 mcg/0.3 mL dose 2 completed Marissa Rogelio null, [employer] 10/19/2023 14:26:46 Influenza, high-dose, quadrivalent, PF 0 completed Marissa Rogelio null, [employer] 10/19/2023 14:26:46 Influenza, high-dose, quadrivalent, PF 1 completed Marissa Summit null, [employer] 10/19/2023 14:26:46 pneumococcal polysaccharide PPV23 4 completed Marissa Summit null, [employer] 10/19/2023 14:26:46 pneumococcal polysaccharide PPV23 8 completed Marissa Summit null, [employer] 10/19/2023 14:26:46 Influenza, high-dose, trivalent, PF 8 completed Marissa Summit null, [employer] 10/19/2023 14:26:46 Hep B, adult 1 completed Marissa Rogelio null, [employer] 10/19/2023 14:26:46 Influenza, split virus, quadrivalent, PF 2 completed Luisa Sandoval APRN [address] [place] [address], [id number], [employer] 07/16/2022 12:50:46 Past Encounters Encounter ID Performer Location Encounter Start Date Encounter Closed Date Diagnosis/Indication Diagnosis SNOMED-CT Code Diagnosis ICD10 Code Diagnosis Note [id number] Luisa Sandoval APRN [address] [address] 07/16/2022 10:04:19 07/16/2022 11:20:43 Gastroesophageal reflux disease without esophagitis 504438927 K21.9 Chronic ob structive pulmonary disease 71802794 J44.9 Depressive disorder 3548 9007 F32.0 Nocturia 699048355 R35.1 Administra tion of influenza vaccine 74242776 Z23 Hypertensive disorder 38 422627 I10 [id number] [place] [address] 01/17/2023 11:05:43 01/17/2023 12:59:22 Hypertensive disorder 58493409 I10 DASH diet, weight loss, exercise emphasized . Continue current meds. Body mass index 40+ - severely obese 575054648 Z68.41 Chronic ob structive pulmonary disease 52634346 J44.9 Continue allergy regimen Mild recur rent major depression 94911136 F33.0 Add low dose Wellbutrin History of polyp of colon 174518955 Z86.010 Last colonoscop y was 03/2019 (6 polyps) and was recommende d to be repeat in 3 years [id number] [place] [address] 03/22/2023 09:12:38 03/22/2023 10:11:40 Acute sinusitis 81167573 J01.90 Wheezing 49485389 R06.2 Body mass index 40+ - severely obese 995504782 Z68.41 [id number] [place] [address] 04/12/2023 08:18:41 04/12/2023 08:57:12 Acute exacerbation of chronic obstructive pulmonary disease 447063404 J44.1 Cough The patient presents dry cough. The patient's condition is worsening. Based on the findings today we will begin medication therapy. Reviewed symptomati c care instructio ns, the expected course of these illnesses and explained that coughing can persist for some time. Provided precaution s for signs of worsening disease and instructio ns on contacting us if symptoms worsen. [id number] Luisa Sandoval, [employer] [place] [phone] 05/25/2023 08:13:17 05/25/2023 09:42:52 Memory impairment 736154070 R41.3 He cannot have MRI as he has an implanted defib. We will obtain labs, head CT, and I would like Dr Anderson to see him for Neuro consult due to his family hx of Alzheimers . He does admit that his concern is exacerbate d by watching his mother's condition decline currently with dementia. Continue CPAP, exercise, healthy diet. Recommende d he have a structured daily routine and consider playing [employer] and [employer] games. [id number] Luisa Sandoval [place] [address] 07/20/2023 08:41:47 07/20/2023 11:53:41 Atherosclerosis of coronary artery without angina pectoris 5718718658 21766 I25.10 Continue current medication s, dash diet, exercise and weight loss encouraged . Nocturia 728115773 R35.1 Adult heal th examination 310271787 Z00.00 Patient presented to office today for their Medicare Annual Wellness Visit. Education was provided on healthy nutrition, including a diet rich in fruits and vegetables , minimizing simple carbohydra liam, salt, and saturated fats. Encouraged regular cardiovasc ular exercise such as walking at least 30 minutes daily, 5 times per week. Emphasized preventive health measures and educated pt on fall prevention and community- based lifestyle interventi ons to help reduce health risks and promote healthy living. Body mass index 30+ - obesity 872359231 Z68.39 Administra tion of influenza vaccine 44298690 Z23 [id number] Luisa Sandoval [address] [address] 08/02/2023 10:19:03 08/02/2023 10:58:19 COVID-19 746868716 U07.1 [id number] Luisa Sandoval [place] [phone] 10/19/2023 14:20:45 10/19/2023 15:29:05 Atherosclerosis of coronary artery without angina pectoris 5167421904 32971 I25.10 Continue current medication s, dash diet, exercise and weight loss encouraged . I encouraged him to try the aldactone, d/w him risk vs benefit and potential side effects. Daily AM post void weights and BP checks encouraged . [id number] Luisa Sandoval [place] [phone] 11/18/2023 13:26:57 11/18/2023 14:24:28 Obstructive sleep apnea of adult 4442837348 103 G47.33 Pressure was set to 12 and now ramping no higher than 9 on new machine. Continue CPAP at current settings. [id number] Nalini Aneudy [place] [address] 01/16/2024 09:14:59 01/16/2024 10:17:15 Cough 83596990 R05.9 Lower resp iratory tract infection 60190874 J22 Body mass index 30+ - obesity 188206093 Z68.39 [id number] Luisa Sandoval [place] [address] 03/14/2024 10:46:33 03/14/2024 12:47:57 Adult health examination 382598938 Z00.00 Patient presented to office today for their Medicare Annual Wellness Visit. Education was provided on healthy nutrition, including a diet rich in fruits and vegetables , minimizing simple carbohydra liam, salt, and saturated fats. Encouraged regular cardiovasc ular exercise such as walking at least 30 minutes daily, 5 times per week. Emphasized preventive health measures and educated pt on fall prevention and community- based lifestyle interventi ons to help reduce health risks and promote healthy living. Body mass index 30+ - obesity 490847005 Z68.39 [id number] Luisa Sandoval [address] 06/12/2024 13:24:26 06/12/2024 15:30:20 Cough 95770748 R05.9 Acute exac erbation of chronic obstructive pulmonary disease 309336862 J44.1 Cough The patient presents dry cough. The patient's condition is worsening. Based on the findings today we will begin medication therapy. Reviewed symptomati c care instructio yvon, the expected course of these illnesses and explained that coughing can persist for some time. Provided precaution s for signs of worsening disease and instructio ns on contacting us if symptoms worsen. [id number] [place] [id number] 07/05/2024 11:08:39 07/05/2024 11:44:46 Active or passive immunization 389364649 Z23 [id number] [place] [phone] 07/31/2024 12:53:40 07/31/2024 13:03:35 Administration of influenza vaccine 43477727 Z23 [id number] [place] [id number] 09/14/2024 08:53:39 09/14/2024 09:35:36 Adult health examination 307013977 Z00.00 Patient presented to office today for their Medicare Annual Wellness Visit. Education was provided on healthy nutrition, including a diet rich in fruits and vegetables , minimizing simple carbohydra liam, salt, and saturated fats. Encouraged regular cardiovasc ular exercise such as walking at least 30 minutes daily, 5 times per week. Emphasized preventive health measures and educated pt on fall prevention and community- based lifestyle interventi ons to help reduce health risks and promote healthy living. Atheroscle rosis of coronary artery without angina pectoris 2700835498 16068 I25.10 Continue current medication s, dash diet, exercise and weight loss encouraged . Daily AM post void weights and BP checks encouraged . Hypertensive disorder 38 530547 I10 DASH diet, weight loss, exercise emphasized . Continue current meds. Mild recur rent major depression 69171830 F33.0 Will obtain EKG today to assess QTc due to Celexa at 40 mg, but he truly cannot decrease dose at this time. He continues to grieve his mother. QTC on EKG 422. WNL. Nocturia 911736263 R35.1 Active or passive immunization 605856616 Z23 Vitamin D deficiency 347 54795 E55.9 Generalize d anxiety disorder 37074765 F41.1 Essential hypertension 35373805 I10 Allergic rhinitis 670111 04 J30.9 Gastroesop hageal reflux disease without esophagitis 208594326 K21.9 [id number] [place] [phone] 11/14/2024 08:02:30 11/14/2024 09:10:50 Chronic low back pain 026346754 M54.50 Patient advised to take medication as directed here. Patient advised to rest initially and then slowly increase activity level. Monitor changes in symptoms such as numbness, tingling or weakness in legs, changes in bowel or bladder habits or worsening back pain. Proper ergonomics discussed. Referral to physical therapy as needed. Patient will call if symptoms worsen or if pain persists greater than 8 weeks. Pain of ri ght hip joint 9343063782 65965 M25.551 Genitocrur al intertrigo 637779881 L30.4 Body mass index 30+ - obesity 006792445 Z68.[id number] [address] 12/10/2024 08:59:55 12/10/2024 09:44:26 Acute bronchitis 28379642 J20.9 Cough The patient presents wet cough. The patient's condition is worsening. Based on the findings today we will begin medication therapy. Reviewed symptomati c care instructio ns, the expected course of these illnesses and explained that coughing can persist for some time. Provided precaution s for signs of worsening disease and instructio ns on contacting us if symptoms worsen. [id number] Luisa Sandoval [address] [address] 12/21/2024 16:07:13 12/21/2024 17:06:36 Obstructive sleep apnea syndrome 68704784 G47.33 Needs renewal order for CPAP supplies. Chronic bronchitis 22587 004 J42 Continue inhalers, mucinex. Push fluids while taking levaquin. Tinea cruris 274483913 B 35.6 Continue Nystop. [id number] Luisa Sandoval, [employer] [place] [address] 02/12/2025 10:34:27 02/12/2025 11:26:20 Lumbar radiculopathy 390033341 M54.16 He cannot have MRI due to implanted defib. Has failed chiro, NSAIDS, steroids, and muscle relaxants. [id number] Luisa Sandoval [place] [address] 03/04/2025 09:49:50 03/04/2025 10:20:25 Acute urticaria 992712079 L50.8 Customary discussion of prescribed medication benefits, side effects, and compliance was done. Patient was instructed on proper skin care. Discussed disease presentati on, treatment options, progressio n, complicati ons, and outcomes with patient during this office visit. Allergy to contrast media 821153955 Z91.069 [id number] Luisa Sandoval [place] [address] 03/15/2025 07:57:37 03/15/2025 08:53:30 Hypertensive disorder 30822497 I10 DASH diet, weight loss, exercise emphasized . Continue current meds. Mild recur rent major depression 02653378 F33.0 Continue celexa and wellbutrin Fatigue 06627558 R53.82 Atheroscle rosis of coronary artery without angina pectoris 2409022476 56237 I25.10 Continue current medication s, dash diet, exercise and weight loss encouraged . Daily AM post void weights and BP checks encouraged . Obstructiv e sleep apnea syndrome 64863383 G47.33 Needs updated sleep study. He is using CPAP but remains very fatigued. Last study was well over 5 years ago. May qualify for Zepbound for VASHTI which would benefit his CVD health also. Body mass index 30+ - obesity 402964841 Z68.39 [id number] Luisa Sandoval [place] [address] 04/09/2025 14:32:12 04/09/2025 15:27:33 Intermittent vertigo 823100255 R42 Likely due to cerumen impaction. Begin meclizine. Inst to proceed to ER should sx progress. Falls safety and slow position changes explained. Impacted c erumen of bilateral ears 1738056732 183652 H61.23 Candidal intertrigo 2661 28454 B37.2 Use of powder explained. Keep skin cool and dry. [id number] Luisa Sandoval [employer] [address] [address] 04/24/2025 11:27:00 04/24/2025 12:11:31 Dizziness 789554521 R42 [address] head as his pacemaker is not MRI safe. Obtain carotid duplex as he has hx CAD. Continue meclizine. Refrain from driving. Obtain Neuro consult. He was advised to proceed to ER if his sx progress in any way in the interim. Blurring o f visual image 133656564 H53.8 Eye exam was laurae edouard. Health Concerns Section Related Observation LastModified by Organization Detai ls LastModified Time None Recorded Concern Status LastModified by Organization Details LastModified Time None Recorded Advance Directives Directive None Recorded Payers Insurance Date Sequence Insurance Name Policy Number Policy Baugh Covered Member ID Baugh Member ID Guarantor Name 04/24/2025 1 [employer] (MEDICARE REPLACEMENT/A DVANTAGE - PPO) Brown Yañez [id number] Brown Yañez 11/02/2022 1 INDIVIDUAL ASSURANCE [employer] (MEDICARE SUPPLEMENT) [id number] Brown aYñez [id number] Brown Yañez 11/02/2022 1 [place] Brown Yañez [id number] Brown Yañez 04/24/2025 [place] Occasion [facility] Brown Yañez [id number] Brown Yañez Notes Date Note Type Note Provider Name and Address Organization Details Recorded Time 5 text/html Back PainReported bypatient.Location:lumbar right;radiation to buttocks right Quality:sharp; shooting; squeezing; tightness; burning Severity:worsening;pain level 6/10;interferes with sleep Duration:4 months Timing:intermittent; recurrent episode Context:atraumatic; overuse; prior back problems Alleviating Factors:rest; position change; nonsteroidal anti-inflammatory; 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 02/12/2025 11:36:51 5 text/html General Rash/Skin LesionReported bypatient.Location:chest; abdomen; back; arm; legs Quality:itchy;red;generali zed;swollen Severity:moderate Duration:has noted for <1 week Onset/Timing:gradual onset Context:no new detergents or skin products; no one else with similar rash; allergies; pets in home; possibly due to allergic reaction to IV contrast dye Aggravating factors:clothing;bathing; heat and sun exposure Associated Symptoms:no fever; no cold symptoms; no nausea; no vomiting; no diarrhea; no urinary symptoms; no obesity; no asthma; no depression Had a CT lumbar with contrast last Tuesday. He then came home that afternoon and mowed his yard in the sun. He developed itchy hives the following day. He is unsure if he had ever had IV contrast before. He is taking benadryl without relief. he denies SOA, chest tightening, wheeze, angioedema sx, etc. Luisa Sandoval APRN [address] [place], [address], [employer]. 03/04/2025 11:08:04 5 text/html Anxiety/DepressionReported bypatient.Severity:denies suicidal ideations; able [...] at . Hx Vit D deficiency. Luisa Sandoval, [employer] [address] [place], [address], [facility] [employer] 03/15/2025 10:06:36 5 text/html DizzinessReported bypatient.Quality:spinning Severity:some effect on daily activities;avoiding exercise;avoiding driving Duration:lasts <1 minute; acute Context:non-smoker;history of high Blood Pressure Alleviating factors:holding still Aggravating factors:rapid movements; moving head Associated Symptoms:no double vision; no dysphagia; no slurred speech; no blurred vision; no vision changes; no foggy vision; no blindness; no spots in field of vision; no eye pain; no hearing loss; no difficulty understanding speech; no ear discharge; no ringing in the ears; no anxiety or unsteady feelings; no syncope; no loss of consciousness; no headache; no head pressure; no nausea; no vomiting; no weak limbs; no facial numbness; no difficulty with speech; no tingling around the mouth; normal stools; no sensation of heart racing; no history of diabetes; no seizure; no facial weakness; no tingling of fingers; no audible eye movements;ear feel pressured;popping noise in the ears;history of hypertension; no tinnitis; no shortness of breath; no palpitations; no deafness; no sweating; no photophobia Prior opinionPCPGeneral Rash/Skin LesionReported bypatient.Location:groin Quality:painful;red;swolle n Severity:moderate Duration:has noted for >3 months Onset/Timing:gradual onset; recurring Context:no new detergents or skin products; no one else with similar rash; allergies; pets in home Alleviating factors:powder Aggravating factors:clothing;bathing; heat and sun exposure Associated Symptoms:no fever; no cold symptoms; no nausea; no vomiting; no diarrhea; no urinary symptoms;obesity; no asthma; no depression Luisa Sandoval APRN [address] [place], [address], [facility] [employer] 04/14/2025 19:47:26 5 text/html DizzinessReported bypatient.Quality:spinning Severity:some effect on daily activities;avoiding exercise;avoiding driving Duration:lasts <1 minute; acute Onset/Timing:daily, began 3 weeks ago Context:non-smoker;history of heart condition;history of high Blood Pressure [...] no deafness; no sweating; no photophobia Prior opinionPCAna Brown presents to follow-up on his complaint [...] up with Cardio at and Pulmonary at [facility]. Luisa Sandoval APRN [address] [place], [address], [facility] [employer] 04/24/2025 12:17:24
--- OUTSIDE RECORDS SUMMARY | 2025-05-06 14:29 | XMS_ITS | Encounter Summary ---
Author Organization Healthcare Address [address] [place] [address] Care Team Providers Care Health And Safety Coordinator Name Role Phone Sandoval, Luisa Ayal DUNN Primary Care Provider [phone] Reason for Visit * Reason Comments Med Refill Encounter Details Date Type Department Care Team (Late st Contact Info) Description 12/15/2022 Refill [facility] [place] [address] [place] [address] Peyman Tijerina MD [address] [place] [address] Social History Tobacco Use Types Packs/Day Years Used Date Smoking Tobacco: Former Smokeless Tobacco: Never Alcohol Use Standard Drinks/Week Comments Yes 0 (1 standard drink = 0.6 oz pur e alcohol) Sex and Gender Information Value Date Recorded Sex Assigned at Not on file Legal Sex Male 6:15 PM EDT Gender Identity Not on file Sexual Orientation Not on file COVID-19 Exposure Response Date Recorded In the last 10 days, have yo u been in contact with someone who was confirmed or suspected to have Coronavirus/COVID-19? No / Unsure 12/15/2022 12:58 PM EST documented as of this encounter Miscellaneous Notes * Telephone Encounter - Cheyenne Reeseulma - 12/16/2022 3:02 PM EST Medication refused due to failing protocol. Requested Prescriptions Pending Prescriptions Disp Refills ??? Xarelto 20 MG tablet [Pharmacy Med Name: XARELTO 20 MG TABLET] 30 tablet Sig: TAKE 1 TABLET BY MOUTH ONCE DAILY WITH DINNER. TAKE WITH FOOD. Factor Xa Inhibitors Protocol Failed - 12/15/2022 8:39 AM Failed - Visit with authorizing provider in past 9 months or upcoming 90 days Recent Visits No visits were found meeting these conditions. Showing recent visits within past 270 days and meeting all other requirements Future Appointments No visits were found meeting these conditions. Showing future appointments within next 90 days and meeting all other requirements Failed - CBC on record in past 12 months HGB (g/dL) Date/Time Value 07/13/2021 0808 14.9 WBC Count (10*3/uL) Date/Time Value 07/13/2021 0808 6.31 Failed - Serum creatinine on record in past 12 months Creatinine, Plasma Date Value Ref Range Status 08/31/2021 1.22 0.80 - 1.30 mg/dL Final External Creatinine Blood Date Value Ref Range Status 12/14/2021 1.06 mg/dL Final Passed - Medication not refilled in past 45 days (1.5 months) No matching medication orders between 11/01/2022 3:02 PM and 12/16/2022 3:02 PM documented in this encounter Plan of Treatment Upcoming Encounters Date Type Department Care Team (Late st Contact Info) Description 08/21/2025 10:00 AM EDT Office Visit [facility] [place] [address], [address] [place] [address] Anton Varma MD [address] [place] [address] documented as of this encounter Visit Diagnoses Not on filedocumented in this encounter Additional Health Concerns Assessment Noted Time A fall risk assessment has been complete d for the patient 12/15/2022 1:11 PM EST A Body Mass Index follow-up plan has been documented for the patient 12/15/2022 2:13 PM EST documented as of this encounter Care Teams Health And Safety Coordinator Relationship Specialty Start Date End Date Luisa Sandoval APRN [address] [place] [address] PCP - General 03/06/21 documented as of this encounter
--- OUTSIDE RECORDS SUMMARY | 2025-05-06 14:30 | XMS_ITS | Data Portability ---
Author Organization [facility] [place] [place] CLOS[facility] Address [address] [place] [address] Care Team Providers Care Web Development Consultant Name Role Phone CA SANDOVAL Referring Provider [phone] JÚNIOR JENSEN Area Development Manager Assessment Encounter Date Assessment Date Assessment LastModified by Organization Details LastModified Time 09/28/2023 09/28/2023 Mild memory complaints. At this time, I do not see specific evidence of dementia. He scores acceptably on bedside cognitive testing, seems to function well, and most notably his and family have not noticed change or had concern. His own concern is mostly related to the fact that he is watching his elderly mother progress with a dementia, and he does not want to be a burden. Discussed the above. I reassured the patient. Encouraged regular mental, social, physical activity. He has significant cardiac history which seems well-treated now. I do not think that further testing or medication is needed now, but if symptoms linger or worsen then we could arrange for neuropsychological testing. He knows to call anytime. [email or web address] Not available 09/28/2023 13:51:25 03/01/2025 03/01/2025 This is a 74-year-old gentleman seen today for evaluation of low back pain that can radiate into the right hip and occasionally in the thoracic spine. He is obese. He has pain over the lumbar spine bilaterally referring into the right buttock described as a cramping drawing sensation into the proximal posterior thigh. He also describes weakness where it is difficult for him to get out of the floor. PMH: A-fib, mechanical heart valve (Xarelto) PSHx: [employer] SICD (not MRI compatible) 1. CT lumbar spine 02/26/2025 demonstrates severe disc base narrowing with Modic changes at L2-3 with moderate canal stenosis The above image findings were discussed with the patient. The patient has undergone no recent injection therapy. Presentation is consistent with lumbar stenosis with radiculopathy. I recommend: 1. Weight loss 2. PT refer 3. L2-3 IL VIRGIL (hold Xarelto 3 days prior) CC requested I had an in-depth discussion with the [...] including imaging, clinical notes, and relevant labs. Not available 03/11/2025 16:44:14 04/05/2025 04/05/2025 This is a 74-year-old gentleman [...] only pain exacerbation. PMH: A-fib (Xarelto) PSHx: [employer] SICD (not MRI compatible) 1. CT lumbar [...] such as yoga or pilates on a detention basis. 4. L2-3 IL VIRGIL (hold Xarelto [...] including imaging, clinical notes, and relevant labs. Not available 04/19/2025 16:29:28 Plan of Treatment [...] hip, bilatera l, 2 view [facility], [address], [place], [address], 04/05/2025 15:49:37 Medication Orders None recorded . Patient TargetsNo targets recorded. Patient Instructions Encounter Date Encounter Id Patient Instructions Last Modified By Organization Details Last Modified Time 04/05/2025 [id number] cardiac clearance* - ATTN: Dr. Varma Requesting [...] 04/05/2004/05/2025 XR, hip, bilat eral, 2 view [facility] [address] [place] [address] Mindy fairchild Name: BROWN fairchild : 1949 [...] Interp reted By: Derrell boo MD Electr onical ly Signed By: Derrell boo MD on 025 3:20 PM [facility] Radiology [address], [address], 04/20/2025 16:34:57 Result Notes Documentation Provider Name and Address Organization Details Recorded Time Xr, Hip, Bilateral, 2 View : [facility] [address] [place] [address] Patient Name: BROWN MUSA Patient : 1950 [...] By: Marcial Yuen MD HÉCTOR REMY PA-C [address] [place], [address], [facility] 04/08/2025 07:49:15 Problems Name Problem SNOMED Code Status Onset Date Resolution Date Notes Provider Name and Address Organization Details Recorded Time Allergic rhinitis 17404313 Active 2015 From Automated Load;Provi brando: Juancarlos Crawley;St atus: Active Not Available [facility] 6 05:06:37 Sinusitis 68560578 Active 2015 From Automated Load;Provi brando: Juancarlos Crawley;St atus: Active Not Available [facility] 6 05:06:37 Loss of sense of smell 78799017 Active 2015 From Automated Load;Provi brando: Juancarlos Crawley;St atus: Active Not Available [facility] 6 05:06:37 Deviated nasal septum 911358846 Active 2015 From Automated Load;Provi brando: Juancarlos Crawley;St atus: Active Not Available [facility] 6 05:06:37 Wheezing 24186293 Active 2015 Provider: Juancarlos Crawley;St atus: Active Not Available [facility] 6 05:06:37 Problem Notes None recorded. Procedures Surgical History Date Name Laterality Status Provider Name and Address Organization Details Recorded Time 04/30/20 25 Lumbar Epidural Steroid Injection - Vivian completed LINDA HI MD [address] [place], [address], [facility] 04/30/2025 14:03:42 03/28/20 24 DAK - Cryo AK completed [facility] 03/28/2024 08:32:42 03/28/20 24 DAK - Destruction BN Lesions completed Maribel Dhillon [facility] 03/28/2024 08:28:52 defibrillation using automated external cardiac defibrillator completed Eleni Willingham [facility] 09/28/2023 12:54:45 external ventricular defibrillation completed [facility] 09/28/2023 12:55:14 direct current atrial defibrillation completed [facility] 09/28/2023 12:56:14 Imaging Results None recorded. Procedure Notes None recorded. Medical Equipment None Reported. Allergies Allergen ID Allergen Name Allergen Category Reaction Reaction Severity Criticality Documentation Date Start Date Code Code System Note Provider Name and Address Organization Details Recorded Time 447948 Lipitor medicatio n Not available Not available Not available 09/17/20162015 44144 5 RxNorm Comme nt: Creat ed By: Bren Dorantes reate edouard Date: 2015 2:13: 45 PM; Not Available [facility] 6 09:56:12 930232 lisinopri l medicatio n Not available Not available Not available 03/28/2024 73513 RxNorm cough [facility] 4 08:04:53 Medications Name Sig Start Date [...] Address Organization Details Last Updated DateTime 5 983081. 72 g 97.4 [degF] 58 /min 98 % 98 % 126/64 mm[Hg] Suri Olivas [facility] 5 09:40:18 Date Recorded Body weight Body temperature Heart rate Oxygen saturation Oxygen saturation in Arterial blood by Pulse oximetry Systolic And Diastolic Provider Name and Address Organization Details Last Updated DateTime 5 735596. 72 g 97.2 [degF] 57 /min 97 % 97 % 124/76 mm[Hg] Surimaria guadalupe Olivas [facility] 5 13:43:04 Date Recorded Body height Body weight Heart rate Oxygen saturation Oxygen saturation in Arterial blood by Pulse oximetry Systolic And Diastolic Provider Name and Address Organization Details Last Updated DateTime 3 167.64 cm 639625. 95 g 64 /min 96 % 96 % 120/72 mm[Hg] Eleni Willingham [facility] 3 12:46:28 Social History Question Answer Notes LastModified by [email or web address] Details LastModified Time Tobacco Smoking Status Former Smoker Eleni Willingham [facility] 09/28/2023 12:53:04 What Was The Date Of Your Most Recent Tobacco Screening? 04/05/2025 [email or web address] Information not available 04/05/2025 What Is Your Relationship Status? [email or web address] Information not available 09/28/2023 Sex: Male Functional Status Question Answer Note LastModified by [email or web address] Details LastModified Time Do you use any illicit or recreational drugs? No Information not available 09/28/2023 What is your level of alcohol consumption? Occasional [email or web address] Information not available 09/28/2023 Mental Status None recorded. Family History Relationship Description Onset Age of this Age Resolved Age Notes LastModified by Organization Details LastModified Time Mother Alzheimer's disease [email or web address] Not available 2022 12:47:47 Maternal Grandmother Alzheimer's disease [email or web address] Not available 2022 12:47:47 Maternal Uncle Alzheimer's disease [email or web address] Not available 2022 12:47:47 Maternal Aunt Alzheimer's disease x2 [email or web address] Not available 2022 12:47:47 Father Parkinson's disease [email or web address] Not available 2022 12:52:13 Unspecified Relation Heart disease [email or web address] Not available 2022 12:52:41 Medical History Condition Response Heart Problems Y Kidney Stones N Blood Transfusion N Emphysema N Colon/Rectal Disorders N Sexually Transmitted Disease N COPD N Depression Y Glaucoma N Pneumonia N Skin Problems N Measles N Meningitis N Heart Attack (NC) Y Ulcers N Diabetes N Attempted Suicide [...] SNOMED-CT Code Diagnosis ICD10 Code Diagnosis Note [id number] GLORIA MARTÍNEZ MD NEUROLOGY [address] [place] [address] 09/28/2023 12:13:25 09/29/2023 04:22:34 Mild memory disturbance 476286483 R41.3 [id number] JÚNIOR CEDENO MD [address] [place] [address] 03/28/2024 07:48:40 03/28/2024 10:34:19 Multiple benign melanocytic nevi 887537346 D22.5 - Benign moles seen on exam today - SPF 30 or higher broad-spec trum sunscreen recommende d with re-applica tion every 2 hours - Discussed sun protection measures, including wide-brimm ed hat, sun-protec tive clothing, and avoidance of sun during peak hours of 10am-4pm - Avoid tanning beds as these can increase the chances of all 3 types of skin cancer - Instructed to monitor for changes and to call us for appointmen t with any changing or worrisome lesions Seborrheic keratosis 394 167229 L82.1 - Benign overgrowth s of skin - Hereditary Senile angioma 7257409 I 78.1 - Benign blood vessel growths - Hereditary Solar lentigo 16283186 L 81.4 - Benign brown spots - Sun-induce d Inflamed s eborrheic keratosis 676758818 L82.0 R52 Counseled on benign nature. Pt elected to treat with liquid nitrogen due to painful irritation . May recur or persist after treatment. Discolorat ion or scarring is possible. Actinic keratosis 584073 007 L57.0 Actinic keratoses are precancero us lesions that may progress to squamous cell carcinoma if untreated. UV light and genetics may increase risk. Treated lesions should blister, scab over, and heal within a few weeks. If treated lesion(s) does not resolve within 1-2 months, patient agrees to follow up for re-evaluat ion. [id number] LINDA HI MD [facility] [address] [place] [address] 03/01/2025 09:23:17 03/01/2025 15:39:40 Degeneration of lumbar intervertebral disc 92796181 M51.369 Lumbar radiculopathy 128 159783 M54.16 Lumbar spondylosis 58100 0009 M47.816 Spinal kael nosis of lumbar region 54617070 M48.062 [id number] HÉCTOR REMY PA-C PAIN MEDICINE [address] [place] [address] 04/05/2025 13:30:43 04/05/2025 15:49:37 Lumbar radiculopathy 878164277 M54.16 Degenerati on of lumbar intervertebral disc 94681320 M51.369 Lumbar spondylosis 56764 0009 M47.816 Spinal kael nosis of lumbar region 66644728 M48.062 Displaceme nt of lumbar intervertebral disc 7246307212 M51.26 Low back pain 099708249 M54.51 Inflammati on of sacroiliac joint 16768714 M46.[id number] HI [address] [facility] PROFESSIO NAL CHARGES [address], [address] [place] [address] 04/30/2025 13:45:38 04/30/2025 16:07:42 Lumbar spondylosis 066129705 M47.816 Health Concerns Section Related Observation LastModified by Organization Detai ls LastModified Time None Recorded Concern Status LastModified by Organization Details LastModified Time None Recorded Advance Directives Directive None Recorded Payers Insurance Date Sequence Insurance Name Policy Number Policy Baugh Covered Member ID Baugh Member ID Guarantor Name 04/27/2025 1 [employer] (MEDICARE REPLACEMENT/A DVANTAGE - PPO) Brown Musa [id number] Brown Musa Notes Date Note Type Note Provider Name and Address Organization Details Recorded Time 09/28/2023 text/html This is a 73 year-old RH man seen at the request of Ca Sandoval APRN for evaluation of memory loss.He was accompanied by his . 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 His has not noticed change or had concern with regard to his memory.They have two children who have also have not had concern, apparently. There is a family history of Alzheimer's disease, including his 94 year-old mother who is still alive and she has it (onset in her late 80s). He sits with her. Her siblings and parents also were felt to have dementia (onset 80s, maybe younger). Much of his concern about his mild memory problem is related to his mother's symptoms; he does not want to be a burden to his family. Head CT - mild atrophy, no sig ischemic change or old stroke, ?BG calcification, small right temporal arachnoid cyst incidentally.B12, TSH, RPR were done in June - I do not have these results. GLORIA MARTÍNEZ MD [address] [place] [address], [phone], [facility] 09/28/2023 13:51:38 03/28/2024 text/html Here for a waist up skin examination - last skin check: 08/2022 - no history of skin cancer - spots of concern today: R arm - pt refused exam other than waist up JÚNIOR CEDENO MD [address] [place] [address], [phone], [facility] 03/28/2024 12:41:14 03/01/2025 text/html Pain Management L-spine GISHReported bypatient.Location :LBP; right hip pain Quality:tightness; aching;sharp Severity:current pain level 2-3/10; worst pain 8/10;worsening;int erference with sleep Duration:constant Onset/Timing:chron ic; 5+ years (worsening in the last 7-8 mths) Context:cannot identify Alleviating Factors:nothing helps Aggravating Factors:getting out of bed; going from sit to stand; sitting; standing; walking Associated Symptoms:no numbness; no bladder compromise; no bowel compromise;weaknes s ADL (Activities of Daily Living):do not improve with medication Driving Impairments with Medications:no Prior Imaging:MRI (lumbar 02/26 or 02/27 @ [facility] fiona Sandoval APRN) Prior EMG:none Previous Surgery:none Previous Injections:none Previous PT:none Previous Director Validation:did not help; Dr Asencio in [facility] , went yesterday LINDA HI MD [address] [place] [address], [phone] 03/11/2025 16:44:18 04/05/2025 text/html Pain Management L-spine GISHReported bypatient.Location [...] Prior Imaging:MRI (lumbar 02/26 or 02/27 @ [facility] fiona Sandoval APRN) Prior EMG:none Previous Surgery:none Previous Injections:none Previous PT:Date completed: ; aggravated symptoms (Ongoing [facility] PT x 3 wks, 4 visits) Previous Director Validation:did not help; Dr Asencio in [facility] , went yesterday Brown Musa is a 74 yo male here today for FUP solis low back pain that radiates down into Rt hip. Pt reports he went to [facility] PT 3 wks and had 4 Tx w/o any relief, this only increased the pain. LINDA HI MD [address] [place] [address], [phone], [facility] 04/19/2025 16:29:34
--- OUTSIDE RECORDS SUMMARY | 2025-05-06 14:30 | XMS_ITS | Continuity of Care Document ---
Author Organization [facility] [employer] [facility] Address [address] [place] [id number] Assessment No assessment recorded. Plan of Treatment Reminders Order Date Submit Date Provider Last Modified By Organization Details Last Modified Time Details Appointments None recorded. Lab None recorded. Referral None recorded. Procedures cerumen removal (PROC) [id number], [address] [place] [address], [phone], 5 11:35:17 Surgeries None recorded. Imaging None recorded. Medication Orders meclizine 25 mg tablet 2024 025 [facility], [address] [place] [address], [address], 5 12:13:39 fluconazole 150 mg tablet 2024 025 [facility], [address] [place] [address], [address], 5 12:13:39 nystatin 100,000 unit/gram topical powder 2024 025 [facility], [address] [place] [address], [address], 5 15:39:44 Patient TargetsNo targets recorded. Patient InstructionsNo instructions recorded. Reason for Referral None Reported. Problems Name Problem SNOMED Code Status Onset Date Resolution Date Notes Provider Name and Address Organization Details Recorded Time Spinal stenosis of lumbosac ral region 679070630 Active 2024 Luisa Sandoval APRN [address] [place] [address], [phone] , [employer] 11:30:52 Allergy to contrast media 256287917 Active 2024 Luisa Sandoval APRN [address] [place] [address], [address] , [employer] 10:05:37 Fatigue 26156990 Active 2024 Luisa Sandoval APRN [address] [place] [address], [address] , [employer] 08:35:22 Obstruct lavern sleep apnea syndrome 77910840 Active 2024 Luisa Sandoval APRN [address] [place] [address], [address] , [employer] 08:41:53 Intermit tent vertigo 760398567 Active 2024 Luisa Sandoval APRN [address] [place] [address], [address] , [employer] 14:59:30 Impacted cerumen of bilatera l ears 14556399291 51103 Active 2024 Luisa Sandoval APRN [address] [place] [address], [address] , [employer] 5 15:00:34 Candidal intertri go 653117861 Active 2024 Luisa Sandoval APRN [address] [place] [address], [address] , [employer] 5 15:02:32 Dizzines s 314964474 Active 2024 Luisa Sandoval APRN [address] [place] [address], [address] , [employer] 5 11:39:56 Blurring of visual image 304378931 Active 2024 Luisa Sandoval, [employer] [address] [facility], [place], [address] , [employer] 5 11:59:00 Pertussi s 13159688 Completed 201806/14/2019 Not Available [facility] 21:19:56 Mild recurren t major depressi on 67782541 Active 2020 Problem Code: F33.0; Problem Code Type: ICD-10; Not Available [facility] 21:19:56 Hyperten sive disorder 14442488 Active 2018 Problem Code: I10; Problem Code Type: ICD-10; Not Available [facility] 21:19:56 Atherosc lerosis of coronary artery without angina pectoris 57747743351 4103 Active 2019 Not Available [facility] 2 21:19:56 Chronic systolic heart failure 932566096 Active 2021 Not Available [facility] 2 21:19:56 Acute pansinus itis 1105750 Completed 201807/14/2022 Problem Code: J01.40; Problem Code Type: ICD-10; STEPHAN LEE null, [employer] 12:15:57 Acute sinusiti s 53596757 Completed 201907/14/2022 Problem Code: J01.90; Problem Code Type: ICD-10; STEPHAN LEE null, [employer] 2 12:16:18 Acute sinusiti s 77520394 Completed 202003/22/2022 Problem Code: J01.90; Problem Code Type: ICD-10; STEPHAN LEE null, [employer] 12:16:18 Bronchop neumonia 649473436 Completed 201712/05/2018 Problem Code: J18.0; Problem Code Type: ICD-10; Not Available [facility] 2 21:19:57 Chronic obstruct lavern pulmonar y disease with acute lower respirat ory infectio n 385916505 Completed 201806/14/2019 Problem Code: J44.0; Problem Code Type: ICD-10; Not Available [facility] 21:19:57 Chronic obstruct lavern pulmonar y disease with acute lower respirat ory infectio n 404450630 Completed 201706/14/2019 Problem Code: J44.0; Problem Code Type: ICD-10; Not Available [facility] 2 21:19:57 Acute bronchit is co-occur rent with bronchie ctasis 096514348 Completed 201907/14/2022 Problem Code: J47.0; Problem Code Type: ICD-10; STEPHAN merida, [employer] 12:15:46 Chronic obstruct lavern pulmonar y disease 19993643 Active 2017 Problem Code: J44.9; Problem Code Type: ICD-10; Not Available [facility] 2 21:19:57 Pleural effusion 53379524 Completed 201904/03/2020 Not Available [facility] 21:19:57 Gastroes ophageal reflux disease without esophagi tis 661626136 Active 2018 Not Available [facility] 21:19:57 Umbilica l hernia 583486950 Active 2021 Problem Code: K42.9; Problem Code Type: ICD-10; Not Available [facility] 2 21:19:57 Melena 7840291 Completed 201806/14/2019 Problem Code: K92.1; Problem Code Type: ICD-10; Not Available [facility] 21:19:58 Pain in right hand 71267921129 9109 Completed 201807/14/2022 Problem Code: M79.641; Problem Code Type: ICD-10; STEPHAN merida, [employer] 12:17:04 Pain of left lower leg 60876720121 9101 Completed 202007/14/2022 Problem Code: M79.662; Problem Code Type: ICD-10; STEPHAN mreida, [employer] 12:16:57 Pain in left foot 49739269401 9107 Completed 202007/14/2022 Problem Code: M79.672; Problem Code Type: ICD-10; STEPHAN LEE null, [employer] 2 12:17:06 Pain in toe 717553796 Completed 202007/14/2022 STEPHAN LEE null, [employer] 12:16:54 Dyspnea 606717551 Completed 201907/14/2022 Problem Code: R06.00; Problem Code Type: ICD-10; STEPHAN LEE null, [employer] 2 12:16:26 Nocturia 369834683 Completed 201907/14/2022 Problem Code: R35.1; Problem Code Type: ICD-10; STEPHAN LEE null, [employer] 12:16:39 Finding of general energy 051236033 Completed 201904/03/2020 Problem Code: R53.83; Problem Code Type: ICD-10; Not Available [facility] 21:19:59 Hypergly cemia 09362439 Completed 202003/22/2022 Problem Code: R73.9; Problem Code Type: ICD-10; Not Available [facility] 21:19:59 Abrasion of skin of forearm 121112146 Completed 201807/14/2022 STEPHAN LEE null, [employer] 12:15:40 General examinat ion of patient Completed 201912/23/2020 Not Available [facility] 2 21:19:59 Acute pansinus itis 5335327 Completed 201707/05/2018 Problem Code: J01.40; Problem Code Type: ICD-10; STEPHAN JAMESVARGHESE merida [employer] 2 12:15:57 Influenz a vaccine needed 27921004634 06 Completed 201908/25/2020 Problem Code: Z23; Problem Code Type: ICD-10; Not Available [facility] 2 21:20:00 Screenin g for malignan t neoplasm of prostate Completed 201712/05/2018 Problem Code: Z12.5; Problem Code Type: ICD-10; Not Available [facility] 2 21:20:00 Body mass index 30+ - obesity 649011342 Active 2019 Problem Code: Z68.37; Problem Code Type: ICD-10; Not Available [facility] 2 21:20:01 Body mass index 30+ - obesity 481984750 Completed 201708/25/2020 Problem Code: Z68.35; Problem Code Type: ICD-10; Not Available [facility] 2 21:20:01 Acute sinusiti s 61440883 Completed 201707/05/2018 Problem Code: 461; Problem Code Type: ICD-9; KENYETTAHOUSTONLala JAMESVARGHESE merida [employer] 2 12:16:18 Screenin g for cancer Completed 201712/05/2018 Not Available [facility] 2 21:20:02 Problem Notes None recorded. Procedures Surgical History Date Name Laterality Status Provider Name and Address Organization Details Recorded Time 5 Cerumen Removal completed Luisa Sandoval APRN [address] [place] [address], [address], [employer] 04/14/2025 19:47:00 placement of stent in coronary artery completed AmvonaSU LEE [employer] 07/14/2022 12:18:41 Pacemaker completed [employer] 07/14/2022 12:18:50 Imaging Results None recorded. Procedure Notes None recorded. Medical Equipment None Reported. Allergies Allergen ID Allergen Name Allergen Category Reaction Reaction Severity Criticality Documentation Date Start Date Code Code System Note Provider Name and Address Organization Details Recorded Time 91768 Lipitor medicatio n Not available Not available Not available 06/29/2022 14964 5 RxNorm Not Available [facility] 22:54:53 19316 Iodinated contrast media (substanc e) medicatio n hives Not available Not available 03/04/20252024 95436 2003 SNOMED Luisa Sandoval, SHAUN [address] [place], [address], [facility] [employer] 10:06:44 Medications Name Sig Start Date [...] Updated DateTime 5 167.64 cm 39.2 kg/m2 829514. 23 g 98.3 [degF] 58 /min 92 % 92 % 114/44 mm[Hg] RACHEL BROOKSKENNETH [employer] 5 14:46:05 Social History Question Answer Notes LastModified by Organizat ion Details LastModified Time Tobacco Smoking Status Former Smoker STEPHAN LEE fuad, [employer] 07/14/2022 12:18:09 Is Your Home Air [...] Response Allergies (Food, seasonal, environmental ) Y Heart Problems Y Hospitalizations N Emergency room visit since last appointm ent. N Lung Disease Y Depression Y COPD Y Acid Reflux (GERD) Y Reflux/GERD Y High Cholesterol Y Immunizations Vaccine Type Date Status Note Provider Nam e and Address Organization Details Recorded Time Influenza, high-dose, quadrivalent, PF 3 completed Luisa Sandoval APRN [address] [place] [address], [address], [employer] 07/20/2023 10:14:19 COVID-19, mRNA, LNP-S, PF, lawson-sucrose, 30 mcg/0.3 mL 3 completed Marissa merida, [employer] 08/08/2023 08:33:31 zoster recombinant 4 completed Martita merida, [employer] 07/05/2024 11:39:28 Influenza, high-dose, trivalent, PF 4 completed Luisa Sandoval APRN [address] [place], [address], [employer] 08/05/2024 21:44:40 zoster recombinant 4 completed Luisa Sandoval APRN [address] [place] [address], [address], [employer] 09/16/2024 20:50:46 COVID-19, mRNA, LNP-S, PF, 30 mcg/0.3 mL dose 1 completed Marissa Rogelio null, [employer] 10/19/2023 14:26:46 COVID-19, mRNA, LNP-S, PF, 30 mcg/0.3 mL dose 1 completed Marissa Rogelio null, [employer] 10/19/2023 14:26:46 COVID-19, mRNA, LNP-S, PF, 30 mcg/0.3 mL dose 1 completed Marissa [place] null, [employer] 10/19/2023 14:26:46 Tdap 9 completed Not Available [employer] 06/30/2022 00:02:01 COVID-19, mRNA, LNP-S, bivalent, PF, 30 mcg/0.3 mL dose 2 completed Marissa [place] null, [employer] 10/19/2023 14:26:46 Influenza, high-dose, quadrivalent, PF 0 completed Marissa [place] null, [employer] 10/19/2023 14:26:46 Influenza, high-dose, quadrivalent, PF 1 completed Marissa Rogelio null, [employer] 10/19/2023 14:26:46 pneumococcal polysaccharide PPV23 4 completed Marissa Rogelio null, [employer] 10/19/2023 14:26:46 pneumococcal polysaccharide PPV23 8 completed Marissa Rogelio null, [employer] 10/19/2023 14:26:46 Influenza, high-dose, trivalent, PF 8 completed Marissa [place] null, [employer] 10/19/2023 14:26:46 Hep B, adult 1 completed Marissa [place] null, [employer] 10/19/2023 14:26:46 Influenza, split virus, quadrivalent, PF 2 completed Luisa Sandoval APRN [address] [place] [address], [address], [facility] [employer] [facility] 07/16/2022 12:50:46 Past Encounters Encounter ID Performer Location Encounter Start Date Encounter Closed Date Diagnosis/Indication Diagnosis SNOMED-CT Code Diagnosis ICD10 Code Diagnosis Note [id number] Luisa Sandoval G[employer]PECTING OBSERVER [address] [address] 03/15/2025 07:57:37 03/15/2025 08:53:30 Hypertensive disorder 27719458 I10 DASH diet, weight loss, exercise emphasized . Continue current meds. Mild recur rent major depression 94713327 F33.0 Continue celexa and wellbutrin Fatigue 09000259 R53.82 Atheroscle rosis of coronary artery without angina pectoris 0984918540 85287 I25.10 Continue current medication s, dash diet, exercise and weight loss encouraged . Daily AM post void weights and BP checks encouraged . Obstructiv e sleep apnea syndrome 01185527 G47.33 Needs updated sleep study. He is using CPAP but remains very fatigued. Last study was well over 5 years ago. May qualify for Zepbound for VASHTI which would benefit his CVD health also. Body mass index 30+ - obesity 126185886 Z68.39 [id number] Luisa SandovalSHAUN [address] [address] 04/09/2025 14:32:12 04/09/2025 15:27:33 Intermittent vertigo 966923109 R42 Likely due to cerumen impaction. Begin meclizine. Inst to proceed to ER should sx progress. Falls safety and slow position changes explained. Impacted c erumen of bilateral ears 2870321370 401244 H61.23 Candidal intertrigo 2661 08538 B37.2 Use of powder explained. Keep skin cool and dry. Health Concerns Section Related Observation LastModified by Organization Detai ls LastModified Time None Recorded Concern Status LastModified by Organization Details LastModified Time None Recorded Payers Encounter Date Sequence Insurance Name Policy Number Policy Baugh Covered Member ID Baugh Member ID Guarantor Name 04/09/2025 1 [employer] (MEDICARE REPLACEMENT/A DVANTAGE - PPO) Brown Yañez [id number] Brown Yañez Notes Date Note Type Note Provider Name and Address Organization Details Recorded Time 04/09/2025 text/html DizzinessReporte d bypatient.Quality:spin tavares Severity:some effect on daily activities;avoiding exercise;avoiding driving Duration:lasts <1 minute; acute Context:non-smoker;his tory of high Blood Pressure Alleviating factors:holding still [...] sweating; no photophobia Prior opinionPCPGeneral Rash/Skin LesionReported bypatient.Location:[place] Quality:painful;red;sw ollen Severity:moderate Duration:has noted for >3 months Onset/Timing:gradual onset; recurring Context:no new detergents or skin products; no one else with similar rash; allergies; pets in home Alleviating factors:powder Aggravating factors:clothing;bathi ng; heat and sun exposure Associated Symptoms:no fever; no cold symptoms; no nausea; no vomiting; no diarrhea; no urinary symptoms;obesity; no asthma; no depression Luisa Sandoval APRN [address] [place], [address], [facility] [employer] 04/14/2025 19:47:26
--- NOTE | 2025-05-06 14:36 | CA_ITS ---
FINAL REPORT CLINICAL HISTORY: HTN, HLD, CAD, pacer/debib, dizziness FINDINGS: RIGHT CAROTID: CCA PSV -80 cm/sec ICA PSV -54 cm/sec ICA/CCA PSV ratio -1.2. Comments: Mild plaque disease is noted. LEFTCAROTID: CCA PSV -88. cm/sec ICA PSV -76. cm/sec ICA/CCA PSV ratio -1.1. Comments: Mild plaque disease is noted. Antegrade flow is seen within the vertebral arteries. IMPRESSION: Carotid stenosis classified less than 50% Reviewed, Interpreted and Dictated by Telly Aguilar MD Transcribed by Ellen Carrizales Authenticated and . [facility]
== END 2025-05-06 23:59 | disposition home or self-care (01) ==
LOC: RAD 14:25
PROVIDERS: PCP Nurse Practitioner Family; Visit Provider Nurse Practitioner Family
DX: I65.23 Occlusion and stenosis of bilateral carotid arteries (principal); G31.9 Degenerative disease of nervous system, unspecified
CPT/HCPCS: 70450; 93880